=== PATIENT | male | born 1985 | race Two or more races ===

== ENCOUNTER 2017-12-29 22:12 | Emergency (ER) | payer MEDICAID ==
[~2017-12-29] VITALS: Ht 165.1 cm; Wt 86.2 kg
[2017-12-29 22:15] VITALS: BP 147/84
[2017-12-30] MEDS ORDERED: IBUPROFEN 200 MG TABLET PO ONE
[2017-12-30 00:31] LABS: CULTURE INDICATED? YES; MICROSCOPIC INDICATED
[2017-12-30] MEDS ORDERED: AZITHROMYCIN 500 MG TABLET PO ONE (01:00)
[2017-12-30] MEDS ORDERED: CEFTRIAXONE 250 MG IM ONE (01:00)
[2017-12-30] MEDS ORDERED: CEFTRIAXONE 250 MG ONE (01:14)
[2017-12-30] MEDS ORDERED: IBUPROFEN 200 MG TABLET ONE (01:14)
[2017-12-30] MEDS ORDERED: AZITHROMYCIN 250 MG TABLET ONE (01:14)
== END 2017-12-30 01:34 | disposition home or self-care (01) ==
LOC: ED 12-30 01:28
DX: N30.01 Acute cystitis with hematuria (principal); N45.1 Epididymitis; N43.3 Hydrocele, unspecified; F17.200 Nicotine dependence, unspecified, uncomplicated
CPT/HCPCS: 76870; 81001; 87086; 87491; 87591; 96372; 99285; J0696

== ENCOUNTER 2018-06-21 15:39 | Inpatient (IN) | payer MEDICAID ==
[~2018-06-21] VITALS: Ht 165.1 cm; Wt 76.1 kg
[2018-06-21 17:09] LABS: BASOPHILS # (AUTO) 0.08 x10^3/uL (0-0.1); BASOPHILS % (AUTO) 1 % (0-1); EOSINOPHILS # (AUTO) 0.46 x10^3/uL (0-0.4); EOSINOPHILS % (AUTO) 4 % (1-7); LYMPHOCYTES # (AUTO) 2.47 x10^3/uL (1-3.4); LYMPHOCYTES % (AUTO) 23 % (22-44); MD NO; MEAN CORPUSCULAR HEMOGLOBIN 29.7 pg (27.5-34.5); MEAN CORPUSCULAR HGB CONC 33.5 g/dL (33.2-36.2); MEAN CORPUSCULAR VOLUME 88.8 fL (81-97); MEAN PLATELET VOLUME 7.2 fL (7.4-10.4); MONOCYTES # (AUTO) 0.88 x10^3/uL (0.2-0.8); MONOCYTES % (AUTO) 8 % (2-9); NEUTROPHILS % (AUTO) 65 % (42-75); PLATELET COUNT 297 x10^3/uL (130-400); RED BLOOD COUNT 5.53 x10^6/uL (4.38-5.82); RED CELL DISTRIBUTION WIDTH 14.2 % (9.4-14.8)
[2018-06-21 17:11] LABS: ALANINE AMINOTRANSFERASE 49 U/L (12-78); ALBUMIN 2.6 g/dL (3.4-5.0); ANION GAP 9 mmol/L (5-15); CALCIUM 7.4 mg/dL (8.5-10.1); CHLORIDE 108 mmol/L (98-107); CREATININE 1.45 mg/dL (0.7-1.3)
[2018-06-21 17:15] LABS: ALKALINE PHOSPHATASE 77 U/L (45-117); BILIRUBIN,TOTAL 0.4 mg/dL (0.2-1.0); TOTAL PROTEIN 6.3 g/dL (6.4-8.2); TROPONIN I 0.063 ng/mL (0.000-0.045)
[2018-06-21] MEDS ORDERED: SODIUM CHLORIDE 0.9% 1,000ML IVBOLUS ONE (18:00)
[2018-06-21] MEDS ORDERED: OMNIPAQUE 350 MG/ML, 100ML BOTTLE ONE (18:25)
[2018-06-21] MEDS ORDERED: ASPIRIN 81 MG TABLET CHEW ONE (18:34)
[2018-06-21] MEDS ORDERED: METOPROLOL TARTRATE 50 MG TABLET ONE (18:34)
[2018-06-21] MEDS ORDERED: METOPROLOL TARTRATE 50 MG TABLET PO ONE (19:00)
[2018-06-21] MEDS ORDERED: ASPIRIN 81 MG TABLET CHEW PO ONE (19:00)
[2018-06-21] MEDS ORDERED: SODIUM CHLORIDE 0.9% 1,000 ML IV SCH (19:29)
[2018-06-21] MEDS ORDERED: DOCUSATE 100 MG CAPSULE PO PRN (19:30)
[2018-06-21] MEDS ORDERED: POLYETHYLENE GLYCOL 17 GM PACKET PO PRN (19:30)
[2018-06-21] MEDS ORDERED: GUAIFENESIN/DM 200-20MG, 10ML UDC PO PRN (19:30)
[2018-06-21] MEDS ORDERED: IBUPROFEN 600 MG TABLET PO PRN (19:30)
[2018-06-21 20:49] VITALS: BP 154/131
[2018-06-21] MEDS: NICOTINE 7 MG/24 HR PATCH.TD24 TD SCH (20:51)
[2018-06-21] MEDS: ENOXAPARIN 40 MG/0.4 ML SQ SCH (20:51)
[2018-06-21] MEDS: FAMOTIDINE 20 MG TABLET PO SCH (20:52)
[2018-06-21] MEDS: CARVEDILOL 6.25 MG TABLET PO SCH (20:52)
[2018-06-21 22:06] VITALS: BP 141/105
[2018-06-21 22:30] VITALS: BP 135/99
[2018-06-21] MEDS ORDERED: LABETALOL 5MG/ML, 20ML IVPush PRN (23:00)
[2018-06-21] MEDS ORDERED: ENALAPRILAT 1.25 MG/ML, 2ML IV PRN (23:00)
[2018-06-21] MEDS ORDERED: hydrALAzine 20 MG/ML, 1ML IV PRN (23:00)
[2018-06-21] MEDS: ONDANSETRON 2MG/ML, 2ML IVPush PRN (23:24)
[2018-06-22 01:58] VITALS: BP 120/90
[2018-06-22 05:14] LABS: ANION GAP 10 mmol/L (5-15); CALCIUM 7.1 mg/dL (8.5-10.1); CHLORIDE 113 mmol/L (98-107)
[2018-06-22 05:22] LABS: CHOL/HDL RATIO 3.5; CHOLESTEROL, TOTAL 145 mg/dL (140-239); CREATININE 1.45 mg/dL (0.7-1.3); HDL CHOL % 28 % (26-37); HDL CHOLESTEROL (DIRECT) 41 mg/dL (40-60); LDL CHOLESTEROL,CALCULATED 80 mg/dL (54-169); TRIGLYCERIDES 119 mg/dL (50-200); TROPONIN I 0.063 ng/mL (0.000-0.045); VLDL CHOLESTEROL 24 mg/dL (0-25)
[2018-06-22 07:25] VITALS: BP 126/95
[2018-06-22] MEDS: FAMOTIDINE 20 MG TABLET PO SCH ×2 (07:29→21:51)
[2018-06-22] MEDS: ONDANSETRON 2MG/ML, 2ML IVPush PRN (07:29)
[2018-06-22] MEDS: ASPIRIN 81 MG TABLET EC PO SCH (08:36)
[2018-06-22] MEDS: CARVEDILOL 6.25 MG TABLET PO SCH ×2 (08:36→21:51)
[2018-06-22] MEDS ORDERED: REGADENOSON 0.4 MG/5 ML SYRINGE ONE (09:41)
[2018-06-22] MEDS: LISINOPRIL 5 MG TABLET PO SCH (12:46)
[2018-06-22 12:47] VITALS: BP 129/95
[2018-06-22] MEDS: ENOXAPARIN 40 MG/0.4 ML SQ SCH (19:30)
[2018-06-22] MEDS: NICOTINE 7 MG/24 HR PATCH.TD24 TD SCH (19:30)
[2018-06-22 20:00] VITALS: BP 115/87
[2018-06-22] MEDS ORDERED: ATORVASTATIN 20 MG TABLET PO SCH (21:00)
[2018-06-22 21:46] VITALS: BP 126/92
[2018-06-23 02:00] VITALS: BP 112/83
[2018-06-23 06:57] VITALS: BP 118/88
[2018-06-23] MEDS: ASPIRIN 81 MG TABLET EC PO SCH (09:48)
[2018-06-23] MEDS: CARVEDILOL 6.25 MG TABLET PO SCH (09:49)
[2018-06-23] MEDS: LISINOPRIL 5 MG TABLET PO SCH (09:49)
[2018-06-23] MEDS: FAMOTIDINE 20 MG TABLET PO SCH (09:49)
[2018-06-23] MEDS ORDERED: CARV6.2512 PO ×2 (11:15)
[2018-06-23] MEDS ORDERED: LISI5TAB7 PO (11:15)
[2018-06-23 12:28] VITALS: BP 134/96
[2018-06-23 12:41] LABS: CHLORIDE 108 mmol/L (98-107)
[2018-06-23 12:45] LABS: ANION GAP 9 mmol/L (5-15); CALCIUM 7.9 mg/dL (8.5-10.1); CREATININE 1.57 mg/dL (0.7-1.3)
== END 2018-06-23 14:00 | disposition home or self-care (01) | DRG 682 ==
LOC: ED 18:21 → EDIP 19:03 → SUATTDRO 19:27 → 5SO 19:59
PROVIDERS: ADMIT Family Medicine; ATTEND Family Medicine
DX: N17.0 Acute kidney failure with tubular necrosis (principal); I50.23 Acute on chronic systolic (congestive) heart failure; E44.0 Moderate protein-calorie malnutrition; I42.9 Cardiomyopathy, unspecified; I11.0 Hypertensive heart disease with heart failure; F17.200 Nicotine dependence, unspecified, uncomplicated; F15.10 Other stimulant abuse, uncomplicated; G89.29 Other chronic pain; Z88.5 Allergy status to narcotic agent
CPT/HCPCS: 36415; 71045; 71275; 78452; 80048; 80053; 80061; 83735; 84145; 84484; 85025; 85379; 93005; 93017; 93306; 96360; 99285; G0378; J2405; J2785; Q9967; A9502; C9898; J7030

== ENCOUNTER 2018-06-25 06:51 | Inpatient (IN) | payer MEDICAID ==
[~2018-06-25] VITALS: Ht 165.1 cm; Wt 69.9 kg
[~2018-06-25 06:51] MED LIST: CARV6.2512 PO; LISI5TAB7 PO
[2018-06-25] MEDS ORDERED: SODIUM CHLORIDE FLUSH 10ML SYR IVF ONE (07:00)
[2018-06-25 07:31] LABS: BASOPHILS # (AUTO) 0.08 x10^3/uL (0-0.1); BASOPHILS % (AUTO) 1 % (0-1); EOSINOPHILS # (AUTO) 0.56 x10^3/uL (0-0.4); EOSINOPHILS % (AUTO) 5 % (1-7); LYMPHOCYTES # (AUTO) 2.43 x10^3/uL (1-3.4); LYMPHOCYTES % (AUTO) 22 % (22-44); MD NO; MEAN CORPUSCULAR HEMOGLOBIN 29.9 pg (27.5-34.5); MEAN CORPUSCULAR HGB CONC 33.1 g/dL (33.2-36.2); MEAN CORPUSCULAR VOLUME 90.3 fL (81-97); MEAN PLATELET VOLUME 7.2 fL (7.4-10.4); MONOCYTES # (AUTO) 0.91 x10^3/uL (0.2-0.8); MONOCYTES % (AUTO) 8 % (2-9); NEUTROPHILS # (AUTO) 7.29 x10^3/uL (1.8-6.8); NEUTROPHILS % (AUTO) 65 % (42-75); PLATELET COUNT 316 x10^3/uL (130-400); RED BLOOD COUNT 5.41 x10^6/uL (4.38-5.82); RED CELL DISTRIBUTION WIDTH 14.3 % (9.4-14.8)
[2018-06-25 07:38] LABS: INTERNATIONAL NORMALIZED RATIO 1.16 (0.93-1.1)
[2018-06-25 07:40] LABS: ALANINE AMINOTRANSFERASE 830 U/L (12-78); ALBUMIN 2.8 g/dL (3.4-5.0); ANION GAP 6 mmol/L (5-15); CALCIUM 7.9 mg/dL (8.5-10.1); CHLORIDE 107 mmol/L (98-107)
[2018-06-25 07:45] LABS: ALKALINE PHOSPHATASE 86 U/L (45-117); BILIRUBIN,TOTAL 0.6 mg/dL (0.2-1.0); CREATININE 1.41 mg/dL (0.7-1.3); TOTAL PROTEIN 7.1 g/dL (6.4-8.2); TROPONIN I 0.044 ng/mL (0.000-0.045)
[2018-06-25] MEDS ORDERED: FUROSEMIDE 40 MG/4 ML ONE (08:15)
[2018-06-25] MEDS ORDERED: ONDANSETRON ODT 4 MG ONE (08:19)
[2018-06-25] MEDS ORDERED: FUROSEMIDE 40 MG/4 ML IV ONE (08:30)
[2018-06-25 08:44] LABS: AMPHETAMINE SCREEN, URINE Negative (Negative); BARBITURATE SCREEN, URINE Negative (Negative); BENZODIAZEPINE SCREEN, URINE Negative (Negative); CANNABINOID SCREEN, URINE Positive (Negative); COCAINE SCREEN, URINE Negative (Negative); METHADONE SCREEN, URINE Negative (Negative); OPIATE SCREEN, URINE Negative (Negative)
[2018-06-25] MEDS ORDERED: ONDANSETRON ODT 4 MG PO ONE (09:00)
[2018-06-25 09:46] VITALS: BP 163/122
[2018-06-25] MEDS ORDERED: ACETAMINOPHEN 650 MG/20.3 ML UDC PO PRN (11:30)
[2018-06-25] MEDS ORDERED: ZOLPIDEM 10MG TABLET PO PRN (11:30)
[2018-06-25] MEDS ORDERED: ONDANSETRON 2MG/ML, 2ML IV PRN (11:30)
[2018-06-25] MEDS: HEPARIN 5,000 UNITS/ML, 1ML SQ SCH ×2 (12:25→23:30)
[2018-06-25] MEDS: CARVEDILOL 3.125 MG TABLET PO SCH ×2 (12:25→17:45)
[2018-06-25 12:30] VITALS: BP_SYST 128; BP_SYST 155; BP_DIAS 118; BP_DIAS 78
[2018-06-25 12:38] VITALS: BP 161/110
[2018-06-25] MEDS: hydrALAzine 20 MG/ML, 1ML IV PRN (13:05)
[2018-06-25] MEDS ORDERED: NICOTINE 21 MG/24 HR PATCH.TD24 TD ONE (14:00)
[2018-06-25] MEDS: PIPERACILLIN/TAZO 2.25 GM in SODIUM CHLORIDE 0.9% 50 ML IV SCH ×2 (14:51→22:17)
[2018-06-25 16:20] VITALS: BP 165/105
[2018-06-25 19:55] VITALS: BP 139/95
[2018-06-25] MEDS: FUROSEMIDE 40 MG/4 ML IVPush SCH (20:54)
[2018-06-26 01:37] VITALS: BP 154/89
[2018-06-26 04:47] LABS: BASOPHILS # (AUTO) 0.07 x10^3/uL (0-0.1); BASOPHILS % (AUTO) 1 % (0-1); EOSINOPHILS # (AUTO) 0.84 x10^3/uL (0-0.4); EOSINOPHILS % (AUTO) 7 % (1-7); LYMPHOCYTES % (AUTO) 23 % (22-44); MD NO; MEAN CORPUSCULAR HEMOGLOBIN 30.2 pg (27.5-34.5); MEAN CORPUSCULAR HGB CONC 33.8 g/dL (33.2-36.2); MEAN CORPUSCULAR VOLUME 89.5 fL (81-97); MEAN PLATELET VOLUME 7.5 fL (7.4-10.4); MONOCYTES # (AUTO) 1.07 x10^3/uL (0.2-0.8); MONOCYTES % (AUTO) 9 % (2-9); NEUTROPHILS # (AUTO) 7.11 x10^3/uL (1.8-6.8); NEUTROPHILS % (AUTO) 60 % (42-75); PLATELET COUNT 308 x10^3/uL (130-400); RED BLOOD COUNT 5.09 x10^6/uL (4.38-5.82)
[2018-06-26 04:57] LABS: ALBUMIN 2.2 g/dL (3.4-5.0); ANION GAP 7 mmol/L (5-15); CALCIUM 8.3 mg/dL (8.5-10.1); CHLORIDE 104 mmol/L (98-107)
[2018-06-26 05:01] LABS: ALANINE AMINOTRANSFERASE 629 U/L (12-78); ALKALINE PHOSPHATASE 74 U/L (45-117); BILIRUBIN,TOTAL 0.5 mg/dL (0.2-1.0); CREATININE 1.47 mg/dL (0.7-1.3); TOTAL PROTEIN 5.8 g/dL (6.4-8.2)
[2018-06-26 05:46] VITALS: BP 163/127
[2018-06-26] MEDS: CARVEDILOL 3.125 MG TABLET PO SCH ×2 (05:47→17:16)
[2018-06-26] MEDS: PIPERACILLIN/TAZO/PMX 2.25GM 50 ML IV SCH ×3 (05:47→23:11)
[2018-06-26 07:20] VITALS: BP 136/99
[2018-06-26] MEDS: FUROSEMIDE 40 MG/4 ML IVPush SCH (08:34)
[2018-06-26] MEDS ORDERED: MORPHINE SULFATE 4 MG/ML, 1ML ONE (10:32)
[2018-06-26] MEDS: HEPARIN 5,000 UNITS/ML, 1ML SQ SCH ×2 (11:30→23:11)
[2018-06-26 13:38] VITALS: BP 153/116
[2018-06-26] MEDS: hydrALAzine 20 MG/ML, 1ML IV PRN (15:11)
[2018-06-26] MEDS: FUROSEMIDE 40 MG TABLET PO SCH (17:16)
[2018-06-26 18:50] VITALS: BP 145/95
[2018-06-26] MEDS: LISINOPRIL 5 MG TABLET PO SCH (19:53)
[2018-06-27 02:18] VITALS: BP 152/99
[2018-06-27] MEDS: CARVEDILOL 3.125 MG TABLET PO SCH (05:38)
[2018-06-27 05:42] LABS: BASOPHILS # (AUTO) 0.07 x10^3/uL (0-0.1); BASOPHILS % (AUTO) 1 % (0-1); EOSINOPHILS # (AUTO) 0.77 x10^3/uL (0-0.4); EOSINOPHILS % (AUTO) 8 % (1-7); LYMPHOCYTES # (AUTO) 2.66 x10^3/uL (1-3.4); LYMPHOCYTES % (AUTO) 26 % (22-44); MD NO; MEAN CORPUSCULAR HGB CONC 33.3 g/dL (33.2-36.2); MEAN PLATELET VOLUME 7.4 fL (7.4-10.4); MONOCYTES # (AUTO) 0.89 x10^3/uL (0.2-0.8); MONOCYTES % (AUTO) 9 % (2-9); NEUTROPHILS # (AUTO) 5.85 x10^3/uL (1.8-6.8); NEUTROPHILS % (AUTO) 57 % (42-75); PLATELET COUNT 301 x10^3/uL (130-400); RED BLOOD COUNT 5.48 x10^6/uL (4.38-5.82); RED CELL DISTRIBUTION WIDTH 14.3 % (9.4-14.8)
[2018-06-27 05:50] LABS: CHLORIDE 103 mmol/L (98-107)
[2018-06-27 05:55] LABS: ANION GAP 8 mmol/L (5-15); CALCIUM 8.1 mg/dL (8.5-10.1); CREATININE 1.62 mg/dL (0.7-1.3)
[2018-06-27 06:56] VITALS: BP 152/99
[2018-06-27] MEDS: FUROSEMIDE 40 MG TABLET PO SCH (07:29)
[2018-06-27] MEDS: PIPERACILLIN/TAZO/PMX 2.25GM 50 ML IV SCH (07:29)
[2018-06-27] MEDS: LISINOPRIL 5 MG TABLET PO SCH (09:35)
[2018-06-27] MEDS ORDERED: CARV6.2512 PO (09:42)
[2018-06-27] MEDS ORDERED: AMOX1TAB64 PO (09:42)
[2018-06-27] MEDS ORDERED: FURO40TA6 PO (09:42)
[2018-06-27] MEDS ORDERED: LISI5TAB7 PO (09:42)
[2018-06-27] MEDS: HEPARIN 5,000 UNITS/ML, 1ML SQ SCH (11:00)
== END 2018-06-27 11:40 | disposition home or self-care (01) | DRG 291 ==
LOC: ED 08:25 → EDIP 08:26 → ED 08:37 → 4WST 09:34 → DCLOUNGE 06-27 11:20
PROVIDERS: ADMIT Internal Medicine; ATTEND Internal Medicine
DX: I13.0 Hypertensive heart and chronic kidney disease with heart failure and stage 1 through stage 4 chronic kidney disease, or unspecified chronic kidney disease (principal); I50.23 Acute on chronic systolic (congestive) heart failure; I16.9 Hypertensive crisis, unspecified; K81.0 Acute cholecystitis; T43.625A Adverse effect of amphetamines, initial encounter; I42.7 Cardiomyopathy due to drug and external agent; E87.5 Hyperkalemia; F17.210 Nicotine dependence, cigarettes, uncomplicated; K76.1 Chronic passive congestion of liver; N18.3 Chronic kidney disease, stage 3 (moderate); Z91.14 Patient's other noncompliance with medication regimen; Y92.89 Other specified places as the place of occurrence of the external cause; Z88.8 Allergy status to other drugs, medicaments and biological substances; Z88.5 Allergy status to narcotic agent
CPT/HCPCS: 36415; 71045; 76700; 78226; 80048; 80053; 80307; 83880; 84484; 85025; 85610; 93005; 96374; G0378; J1644; J1940; J2543; A9537; C9898; J0360

== ENCOUNTER 2018-09-01 23:29 | Emergency (ER) | payer MEDICAID ==
[~2018-09-01] VITALS: Ht 165.1 cm; Wt 71.4 kg
[~2018-09-01 23:29] MED LIST changes: +AMOX1TAB64 PO; +FURO40TA6 PO
[2018-09-01 23:36] VITALS: BP 128/91
[2018-09-02] MEDS ORDERED: ALBUTEROL/IPRATROPIUM 2.5MG/0.5MG, 3 ML NPPB ONE
[2018-09-02] MEDS ORDERED: ALBUTEROL/IPRATROPIUM 2.5MG/0.5MG, 3 ML ONE
== END 2018-09-02 01:11 | disposition home or self-care (01) ==
LOC: ED 09-02 00:02
DX: J20.9 Acute bronchitis, unspecified (principal); I11.0 Hypertensive heart disease with heart failure; I50.9 Heart failure, unspecified; I42.9 Cardiomyopathy, unspecified; F17.200 Nicotine dependence, unspecified, uncomplicated
CPT/HCPCS: 71046; 93005; 94640; 99283; 99406; J7620

== ENCOUNTER 2018-09-28 14:44 | Inpatient (IN) | payer MEDICAID ==
[~2018-09-28] VITALS: Ht 165.1 cm; Wt 73.2 kg
--- NOTE | 2018-09-28 15:05 | NUR ---
assumed care of pt. pt here c/o N/V and cough with sinus and chest congestion x2 days. deniesdiarrhea. pt has a hx of CHF but denies CP. pt is clammy and mildly diaphoretic. is slightlys SOB but speaking full sentences wihout difficulty. pt has not had a flu vaccine and denies recent sick contacts. no family at bedside
--- NOTE | 2018-09-28 15:15 | NUR ---
pt to RAD
[2018-09-28 15:30] LABS: BASOPHILS # (AUTO) 0.09 x10^3/uL (0-0.1); BASOPHILS % (AUTO) 1 % (0-1); EOSINOPHILS # (AUTO) 0.06 x10^3/uL (0-0.4); EOSINOPHILS % (AUTO) 0 % (1-7); LYMPHOCYTES # (AUTO) 3.29 x10^3/uL (1-3.4); LYMPHOCYTES % (AUTO) 22 % (22-44); MD NO; MEAN CORPUSCULAR HGB CONC 33.2 g/dL (33.2-36.2); MEAN CORPUSCULAR VOLUME 90.1 fL (81-97); MEAN PLATELET VOLUME 7.7 fL (7.4-10.4); MONOCYTES # (AUTO) 0.98 x10^3/uL (0.2-0.8); MONOCYTES % (AUTO) 7 % (2-9); NEUTROPHILS # (AUTO) 10.62 x10^3/uL (1.8-6.8); NEUTROPHILS % (AUTO) 71 % (42-75); PLATELET COUNT 293 x10^3/uL (130-400); RED BLOOD COUNT 6.05 x10^6/uL (4.38-5.82)
[2018-09-28 15:39] LABS: ALANINE AMINOTRANSFERASE 256 U/L (12-78); ALBUMIN 3.2 g/dL (3.4-5.0); ANION GAP 9 mmol/L (5-15); CALCIUM 8.8 mg/dL (8.5-10.1); CHLORIDE 103 mmol/L (98-107); CREATININE 1.66 mg/dL (0.7-1.3)
[2018-09-28 15:43] LABS: ALKALINE PHOSPHATASE 92 U/L (45-117); BILIRUBIN,TOTAL 1.6 mg/dL (0.2-1.0); TOTAL PROTEIN 8.6 g/dL (6.4-8.2)
[2018-09-28] MEDS ORDERED: ASPIRIN 81 MG TABLET CHEW ONE (15:51)
--- NOTE | 2018-09-28 15:55 | NUR ---
pt medicated per order. pt denies CP at this time
--- NOTE | 2018-09-28 15:56 | NUR ---
pt is hypertensive. states that he has been complaint with meds at home. denies [place] dizziness or loss or change of vision. REESE. no other c/o. pt was initially sleeping when this RN entered room to adminster medication
[2018-09-28] MEDS ORDERED: ASPIRIN 81 MG TABLET CHEW PO ONE (16:00)
[2018-09-28] MEDS ORDERED: NITROGLYCERIN SINGLE TAB 0.4 MG SL PRN (16:00)
--- NOTE | 2018-09-28 16:05 | NUR ---
code cardiac called, code cart to bedside
--- NOTE | 2018-09-28 16:15 | NUR ---
hospitalist at bedside. pt now admits to frequent meth use and SOB with intermittent CP. pt also now states that he had a hx of ear surgery
--- NOTE | 2018-09-28 16:16 | NUR ---
CARDIOLOGY PAGED @ [phone]. SECOND PAGE ATTEMPTED. DR. EVANS RETURNED CALL @ 1605 WHILE ON HOLD. CODE CARDIAC PAGED @ 1607. SPARK PLUG ASSEMBLER CALLED @ 1609, NO ANSWER. PHLEBOTOMY SERVICES TECHNICIAN CALLED SPARK PLUG ASSEMBLER AND LET US KNOW THEY HAD BEEN PAGED @ 1612.
[2018-09-28] MEDS ORDERED: SODIUM CHLORIDE FLUSH 10ML SYR IVF PRN (16:30)
--- NOTE | 2018-09-28 16:31 | NUR ---
WORKERS COMPENSATION CONSULTANT ARRIVED @ [id number]
--- NOTE | 2018-09-28 16:32 | NUR ---
Dr Looney at bedside for eval. pt to go to garage laborer
--- NOTE | 2018-09-28 16:37 | NUR ---
consent for laboratory sample carrier has been signed, procedural sedation packet initiated
--- NOTE | 2018-09-28 16:45 | NUR ---
TOUR BUS DRIVER/GUIDE CALLED. THEY ARE READY FOR PT.
[2018-09-28] MEDS ORDERED: MIDAZOLAM 1 MG/ML, 5ML ONE (16:46)
[2018-09-28] MEDS ORDERED: VERAPAMIL 2.5 MG/ML, 2ML ONE (16:46)
[2018-09-28] MEDS ORDERED: LIDOCAINE 2%, 20ML ONE (16:46)
[2018-09-28] MEDS ORDERED: BIVALIRUDIN 250 MG ONE (16:46)
[2018-09-28] MEDS ORDERED: TICAGRELOR 90 MG TABLET ONE (16:46)
[2018-09-28] MEDS ORDERED: FENTANYL PF 100 MCG/2ML ONE (16:46)
[2018-09-28] MEDS ORDERED: HEPARIN 1,000 UNITS/ML, 10ML ONE (16:46)
--- NOTE | 2018-09-28 16:46 | NUR ---
pt to cardiac cath lab radiology technologist
[2018-09-28] MEDS ORDERED: NITROGLYCERIN 0.4 MG BOTTLE (25 TABS) SL PRN (17:00)
[2018-09-28] MEDS ORDERED: HYDROmorphone 2 MG/ML, 1ML IVPush PRN (17:00)
[2018-09-28] MEDS ORDERED: NITROGLYCERIN 0.4 MG/SPRAY SL PRN (17:00)
[2018-09-28] MEDS ORDERED: METOPROLOL 1 MG/ML, 5ML ONE (17:09)
[2018-09-28] MEDS ORDERED: ENOXAPARIN 40 MG/0.4 ML SQ SCH (17:30)
[2018-09-28] MEDS ORDERED: ONDANSETRON 2MG/ML, 2ML ONE (17:32)
[2018-09-28] MEDS ORDERED: SODIUM CHLORIDE 0.9% 1,000 ML IV SCH (17:34)
[2018-09-28] MEDS ORDERED: ONDANSETRON 2MG/ML, 2ML IVPush PRN (18:00)
[2018-09-28] MEDS ORDERED: FUROSEMIDE 40 MG/4 ML IV ONE (18:00)
[2018-09-28] MEDS ORDERED: ATORVASTATIN 80 MG TABLET PO ONE (18:00)
[2018-09-28 19:00] VITALS: BP 106/82
[2018-09-28] MEDS: CARVEDILOL 12.5 MG TABLET PO SCH (20:00)
[2018-09-28 20:29] VITALS: BP 97/46
[2018-09-28] MEDS ORDERED: ATORVASTATIN 80 MG TABLET PO SCH (21:00)
[2018-09-28] MEDS: TICAGRELOR 90 MG TABLET PO SCH (21:18)
[2018-09-29 04:00] VITALS: BP 140/100
[2018-09-29 04:49] LABS: ANION GAP 8 mmol/L (5-15); CALCIUM 7.9 mg/dL (8.5-10.1); CHLORIDE 104 mmol/L (98-107)
[2018-09-29 04:50] LABS: CREATININE 1.52 mg/dL (0.7-1.3)
[2018-09-29] MEDS: CARVEDILOL 12.5 MG TABLET PO SCH ×2 (05:03→16:37)
[2018-09-29 06:04] LABS: CHOLESTEROL, TOTAL 133 mg/dL (140-239); TRIGLYCERIDES 63 mg/dL (50-200); VLDL CHOLESTEROL 13 mg/dL (0-25)
[2018-09-29 06:06] LABS: CHOL/HDL RATIO 4.4; HDL CHOL % 23 % (26-37); HDL CHOLESTEROL (DIRECT) 30 mg/dL (40-60); LDL CHOLESTEROL,CALCULATED 90 mg/dL (54-169)
[2018-09-29 06:52] LABS: AMPHETAMINE SCREEN, URINE Positive (Negative); BARBITURATE SCREEN, URINE Negative (Negative); BENZODIAZEPINE SCREEN, URINE Positive (Negative); CANNABINOID SCREEN, URINE Positive (Negative); COCAINE SCREEN, URINE Negative (Negative); METHADONE SCREEN, URINE Negative (Negative); OPIATE SCREEN, URINE Negative (Negative)
[2018-09-29] MEDS: SPIRONOLACTONE 25 MG TABLET PO SCH (08:20)
[2018-09-29] MEDS: ASPIRIN 81 MG TABLET EC PO SCH (08:21)
[2018-09-29] MEDS: TICAGRELOR 90 MG TABLET PO SCH ×2 (08:21→20:12)
[2018-09-29] MEDS: FUROSEMIDE 40 MG TABLET PO SCH (08:21)
[2018-09-29] MEDS: POTASSIUM CHLORIDE 20 MEQ TAB.ER.PRT PO SCH (08:21)
[2018-09-29] MEDS ORDERED: LISINOPRIL 20 MG TABLET PO SCH (09:00)
[2018-09-29] MEDS ORDERED: WARFARIN MODERAT DOSE PROTOCOL XX PRN (11:00)
[2018-09-29 11:10] LABS: INTERNATIONAL NORMALIZED RATIO 1.67 (0.93-1.1); PROTHROMBIN TIME 17.4 Seconds (9.6-11.5)
[2018-09-29] MEDS: WARFARIN HIGH DOSE PROTOCOL XX SCH (12:00)
[2018-09-29] MEDS ORDERED: ENOXAPARIN 80 MG/0.8 ML SQ SCH (12:30)
[2018-09-29] MEDS: ENOXAPARIN 80 MG/0.8 ML SQ SCH (13:59)
[2018-09-29] MEDS ORDERED: WARFARIN 5 MG TABLET PO-COUM ONE (16:33)
[2018-09-29 16:36] VITALS: BP 109/77
[2018-09-29] MEDS ORDERED: WARFARIN 10 MG TABLET PO-COUM ONE (18:00)
[2018-09-29 18:35] VITALS: BP 128/88
[2018-09-30] MEDS: ENOXAPARIN 80 MG/0.8 ML SQ SCH (00:42)
[2018-09-30 03:55] VITALS: BP 125/85
[2018-09-30 05:25] LABS: BASOPHILS # (AUTO) 0.09 x10^3/uL (0-0.1); BASOPHILS % (AUTO) 1 % (0-1); EOSINOPHILS # (AUTO) 0.43 x10^3/uL (0-0.4); EOSINOPHILS % (AUTO) 3 % (1-7); LYMPHOCYTES # (AUTO) 3.14 x10^3/uL (1-3.4); LYMPHOCYTES % (AUTO) 23 % (22-44); MD NO; MEAN CORPUSCULAR HEMOGLOBIN 30.1 pg (27.5-34.5); MEAN CORPUSCULAR HGB CONC 33.2 g/dL (33.2-36.2); MEAN CORPUSCULAR VOLUME 90.8 fL (81-97); MEAN PLATELET VOLUME 7.7 fL (7.4-10.4); MONOCYTES # (AUTO) 0.82 x10^3/uL (0.2-0.8); MONOCYTES % (AUTO) 6 % (2-9); NEUTROPHILS # (AUTO) 9.03 x10^3/uL (1.8-6.8); NEUTROPHILS % (AUTO) 67 % (42-75); PLATELET COUNT 295 x10^3/uL (130-400); RED BLOOD COUNT 5.35 x10^6/uL (4.38-5.82); RED CELL DISTRIBUTION WIDTH 13.9 % (9.4-14.8)
[2018-09-30 05:32] LABS: INTERNATIONAL NORMALIZED RATIO 2.12 (0.93-1.1); PROTHROMBIN TIME 21.8 Seconds (9.6-11.5)
[2018-09-30 05:39] VITALS: BP 130/88
[2018-09-30 05:40] LABS: ALANINE AMINOTRANSFERASE 532 U/L (12-78); ALBUMIN 2.2 g/dL (3.4-5.0); ANION GAP 7 mmol/L (5-15); CALCIUM 8.2 mg/dL (8.5-10.1); CHLORIDE 104 mmol/L (98-107); CREATININE 1.37 mg/dL (0.7-1.3)
[2018-09-30 05:42] LABS: ALKALINE PHOSPHATASE 83 U/L (45-117); BILIRUBIN,TOTAL 0.7 mg/dL (0.2-1.0)
[2018-09-30] MEDS: CARVEDILOL 12.5 MG TABLET PO SCH (05:47)
[2018-09-30 07:54] VITALS: BP 121/88
[2018-09-30] MEDS: TICAGRELOR 90 MG TABLET PO SCH ×2 (10:13→20:52)
[2018-09-30] MEDS: SPIRONOLACTONE 25 MG TABLET PO SCH (10:13)
[2018-09-30] MEDS: POTASSIUM CHLORIDE 20 MEQ TAB.ER.PRT PO SCH (10:13)
[2018-09-30] MEDS: FUROSEMIDE 40 MG TABLET PO SCH (10:13)
[2018-09-30] MEDS: ASPIRIN 81 MG TABLET EC PO SCH (10:13)
[2018-09-30] MEDS: WARFARIN HIGH DOSE PROTOCOL XX SCH (10:14)
[2018-09-30] MEDS ORDERED: MAGNESIUM SULFATE PMX 2GM/50ML 50 ML IV ONE (10:30)
[2018-09-30 12:29] VITALS: BP 132/92
[2018-09-30] MEDS: LOSARTAN 25MG TABLET PO SCH (12:30)
[2018-09-30 12:52] VITALS: BP 137/99
[2018-09-30] MEDS: CARVEDILOL 6.25 MG TABLET PO SCH (17:28)
[2018-09-30] MEDS ORDERED: WARFARIN 2.5 MG TABLET PO-COUM ONE (18:00)
[2018-09-30 20:02] VITALS: BP 135/88
[2018-09-30] MEDS: MAGNESIUM OXIDE 400 MG TABLET PO SCH (20:52)
[2018-10-01 00:14] VITALS: BP 124/84
[2018-10-01 05:07] LABS: BASOPHILS # (AUTO) 0.05 x10^3/uL (0-0.1); BASOPHILS % (AUTO) 0 % (0-1); EOSINOPHILS # (AUTO) 0.48 x10^3/uL (0-0.4); EOSINOPHILS % (AUTO) 4 % (1-7); LYMPHOCYTES # (AUTO) 2.42 x10^3/uL (1-3.4); LYMPHOCYTES % (AUTO) 20 % (22-44); MD NO; MEAN CORPUSCULAR HEMOGLOBIN 30.3 pg (27.5-34.5); MEAN CORPUSCULAR HGB CONC 33.6 g/dL (33.2-36.2); MEAN CORPUSCULAR VOLUME 90.3 fL (81-97); MEAN PLATELET VOLUME 8.1 fL (7.4-10.4); MONOCYTES # (AUTO) 1.05 x10^3/uL (0.2-0.8); MONOCYTES % (AUTO) 9 % (2-9); NEUTROPHILS # (AUTO) 8.36 x10^3/uL (1.8-6.8); NEUTROPHILS % (AUTO) 68 % (42-75); PLATELET COUNT 300 x10^3/uL (130-400); RED BLOOD COUNT 5.63 x10^6/uL (4.38-5.82); RED CELL DISTRIBUTION WIDTH 13.5 % (9.4-14.8)
[2018-10-01 05:20] LABS: ALBUMIN 2.5 g/dL (3.4-5.0); ANION GAP 6 mmol/L (5-15); CHLORIDE 104 mmol/L (98-107)
[2018-10-01 05:23] LABS: ALANINE AMINOTRANSFERASE 463 U/L (12-78); ALKALINE PHOSPHATASE 85 U/L (45-117); BILIRUBIN,TOTAL 0.6 mg/dL (0.2-1.0); CREATININE 1.36 mg/dL (0.7-1.3); TOTAL PROTEIN 6.9 g/dL (6.4-8.2)
[2018-10-01 05:24] LABS: INTERNATIONAL NORMALIZED RATIO 6.12 (0.93-1.1); PROTHROMBIN TIME 60.5 Seconds (9.6-11.5)
[2018-10-01 05:49] VITALS: BP 124/72
[2018-10-01] MEDS: CARVEDILOL 6.25 MG TABLET PO SCH ×2 (05:50→15:34)
[2018-10-01] MEDS ORDERED: HOLD COUMADIN MC PRN (08:00)
[2018-10-01] MEDS: POTASSIUM CHLORIDE 20 MEQ TAB.ER.PRT PO SCH (08:18)
[2018-10-01] MEDS: FUROSEMIDE 40 MG TABLET PO SCH (08:18)
[2018-10-01] MEDS: MAGNESIUM OXIDE 400 MG TABLET PO SCH ×2 (08:18→20:03)
[2018-10-01] MEDS: ASPIRIN 81 MG TABLET EC PO SCH (08:18)
[2018-10-01] MEDS: TICAGRELOR 90 MG TABLET PO SCH ×2 (08:18→20:03)
[2018-10-01] MEDS: LOSARTAN 25MG TABLET PO SCH (08:18)
[2018-10-01] MEDS: SPIRONOLACTONE 25 MG TABLET PO SCH (08:18)
[2018-10-01 09:58] VITALS: BP 135/96
[2018-10-01 13:04] VITALS: BP 142/107
[2018-10-01 20:51] VITALS: BP 147/95
[2018-10-02] VITALS (7 sets, daily range): BP systolic 89–166; BP diastolic 50–127
[2018-10-02] MEDS: CARVEDILOL 6.25 MG TABLET PO SCH (05:34)
[2018-10-02 05:48] LABS: INTERNATIONAL NORMALIZED RATIO 5.18 (0.93-1.1); PROTHROMBIN TIME 51.5 Seconds (9.6-11.5)
[2018-10-02] MEDS ORDERED: CARVEDILOL 6.25 MG TABLET PO ONE ×2 (07:00→11:00)
[2018-10-02] MEDS ORDERED: hydrALAzine 20 MG/ML, 1ML IV PRN (07:00)
[2018-10-02] MEDS ORDERED: HOLD COUMADIN MC PRN (07:30)
[2018-10-02] MEDS: POTASSIUM CHLORIDE 20 MEQ TAB.ER.PRT PO SCH (07:52)
[2018-10-02] MEDS: MAGNESIUM OXIDE 400 MG TABLET PO SCH ×2 (07:52→20:57)
[2018-10-02] MEDS: SPIRONOLACTONE 25 MG TABLET PO SCH (07:52)
[2018-10-02] MEDS: ASPIRIN 81 MG TABLET EC PO SCH (07:52)
[2018-10-02] MEDS: TICAGRELOR 90 MG TABLET PO SCH ×2 (07:52→20:57)
[2018-10-02] MEDS: FUROSEMIDE 40 MG TABLET PO SCH (07:53)
[2018-10-02] MEDS ORDERED: ENALAPRILAT 1.25 MG/ML, 2ML IV PRN (08:30)
[2018-10-02] MEDS ORDERED: LOSARTAN 50MG TABLET PO SCH (09:00)
[2018-10-02] MEDS: LOSARTAN 50MG TABLET PO SCH ×2 (09:00→20:56)
[2018-10-02] MEDS ORDERED: TICA90TA PO (10:38)
[2018-10-02] MEDS ORDERED: MAGN400T50 PO (10:38)
[2018-10-02] MEDS ORDERED: LOSA50TA2 PO (10:38)
[2018-10-02] MEDS ORDERED: POTA20TA6 PO (10:38)
[2018-10-02] MEDS ORDERED: WARF2TAB PO ×2 (10:38)
[2018-10-02] MEDS ORDERED: CARV12.543 PO ×2 (10:38)
[2018-10-02] MEDS ORDERED: SPIR25TA PO (10:38)
[2018-10-02] MEDS ORDERED: ASPI81TA45 PO (10:38)
[2018-10-02] MEDS ORDERED: ATOR40TA78 PO (10:42)
[2018-10-02 12:35] LABS: AMPHETAMINE SCREEN, URINE Negative (Negative); BARBITURATE SCREEN, URINE Negative (Negative); BENZODIAZEPINE SCREEN, URINE Negative (Negative); CANNABINOID SCREEN, URINE Negative (Negative); COCAINE SCREEN, URINE Negative (Negative); METHADONE SCREEN, URINE Negative (Negative); OPIATE SCREEN, URINE Negative (Negative)
[2018-10-02] MEDS ORDERED: SODIUM CHLORIDE 0.9% 250 ML IV SCH (16:30)
[2018-10-02] MEDS: CARVEDILOL 12.5 MG TABLET PO SCH (17:18)
[2018-10-02] MEDS: DIGOXIN 0.125 MG TABLET PO SCH (17:24)
[2018-10-02] MEDS ORDERED: CARVEDILOL 12.5 MG TABLET PO SCH ×2 (18:00)
[2018-10-03 01:44] VITALS: BP 108/74
[2018-10-03] MEDS: CARVEDILOL 12.5 MG TABLET PO SCH (05:58)
[2018-10-03 07:25] VITALS: BP 109/74
[2018-10-03 08:40] LABS: INTERNATIONAL NORMALIZED RATIO 3.24 (0.93-1.1); PROTHROMBIN TIME 32.8 Seconds (9.6-11.5)
[2018-10-03] MEDS ORDERED: CARV12.543 PO (09:27)
[2018-10-03 09:31] VITALS: BP 123/84
[2018-10-03] MEDS: TICAGRELOR 90 MG TABLET PO SCH (09:34)
[2018-10-03] MEDS: DIGOXIN 0.125 MG TABLET PO SCH (09:34)
[2018-10-03] MEDS: MAGNESIUM OXIDE 400 MG TABLET PO SCH (09:34)
[2018-10-03] MEDS: ASPIRIN 81 MG TABLET EC PO SCH (09:34)
[2018-10-03] MEDS: LOSARTAN 50MG TABLET PO SCH (09:35)
[2018-10-03] MEDS: POTASSIUM CHLORIDE 20 MEQ TAB.ER.PRT PO SCH (09:35)
[2018-10-03] MEDS: FUROSEMIDE 40 MG TABLET PO SCH (09:35)
[2018-10-03] MEDS: SPIRONOLACTONE 25 MG TABLET PO SCH (09:35)
[2018-10-03 13:04] VITALS: BP 133/92
[2018-10-03] MEDS ORDERED: WARF2TAB PO (16:26)
== END 2018-10-03 18:28 | disposition home or self-care (01) | DRG 248 ==
LOC: ED 15:15 → SUATTDRO 16:42 → EDIP 17:25 → CCU 17:40 → 5SO 09-29 14:17
PROVIDERS: ADMIT Internal Medicine; ATTEND Internal Medicine
PROC: 4A023N7 Measurement of Cardiac Sampling and Pressure, Left Heart, Percutaneous Approach (ICD-10-PCS; principal; 2018-09-28)
PROC: 02703EZ Dilation of Coronary Artery, One Artery with Two Intraluminal Devices, Percutaneous Approach (ICD-10-PCS; 2018-09-28)
PROC: B2111ZZ Fluoroscopy of Multiple Coronary Arteries using Low Osmolar Contrast (ICD-10-PCS; 2018-09-28)
PROC: B2151ZZ Fluoroscopy of Left Heart using Low Osmolar Contrast (ICD-10-PCS; 2018-09-28)
DX: I21.02 ST elevation (STEMI) myocardial infarction involving left anterior descending coronary artery (principal); I50.43 Acute on chronic combined systolic (congestive) and diastolic (congestive) heart failure; N17.0 Acute kidney failure with tubular necrosis; D68.69 Other thrombophilia; E78.5 Hyperlipidemia, unspecified; F15.10 Other stimulant abuse, uncomplicated; I11.0 Hypertensive heart disease with heart failure; I16.0 Hypertensive urgency; I25.10 Atherosclerotic heart disease of native coronary artery without angina pectoris; I25.5 Ischemic cardiomyopathy; K72.90 Hepatic failure, unspecified without coma; K75.89 Other specified inflammatory liver diseases; Z79.82 Long term (current) use of aspirin; I25.2 Old myocardial infarction; Z72.0 Tobacco use; Z79.01 Long term (current) use of anticoagulants; Z95.5 Presence of coronary angioplasty implant and graft
CPT/HCPCS: 36415; 71046; 80048; 80053; 80061; 80307; 83735; 83880; 84100; 84484; 85014; 85018; 85025; 85610; 86706; 86803; 87081; 87340; 87806; 93005; 93306; 93458; 99285; C1769; C1876; C1894; G0378; J0583; J1644; J1650; J1940; J2250; J2405; J3010; J3490; C1725; C1887; G0475; J3475; J7050; Q9967

== ENCOUNTER 2018-10-27 13:05 | Emergency (ER) | payer MEDICAID ==
[~2018-10-27] VITALS: Ht 162.6 cm; Wt 71.0 kg
[~2018-10-27 13:05] MED LIST changes: +ASPI81TA45 PO; +ATOR40TA78 PO; +CARV12.543 PO; +LOSA50TA2 PO; +MAGN400T50 PO; +POTA20TA6 PO; +SPIR25TA PO; +TICA90TA PO; +WARF2TAB PO
--- NOTE | 2018-10-27 13:43 | NUR ---
PT PLACED ON HEART MONITOR, BP CUFF, PULSE OX. PT UPDATED ON POC. CALL LIGHT WITHIN REACH, WARM BLANKET PROVIDED. PCXR COMPLETED.
[2018-10-27 13:54] LABS: BASOPHILS % (AUTO) 1 % (0-1); EOSINOPHILS % (AUTO) 3 % (1-7); LYMPHOCYTES # (AUTO) 2.13 x10^3/uL (1-3.4); LYMPHOCYTES % (AUTO) 21 % (22-44); MD NO; MEAN CORPUSCULAR HGB CONC 32.9 g/dL (33.2-36.2); MEAN CORPUSCULAR VOLUME 88.2 fL (81-97); MEAN PLATELET VOLUME 7.2 fL (7.4-10.4); MONOCYTES # (AUTO) 0.73 x10^3/uL (0.2-0.8); MONOCYTES % (AUTO) 7 % (2-9); NEUTROPHILS # (AUTO) 6.79 x10^3/uL (1.8-6.8); NEUTROPHILS % (AUTO) 68 % (42-75); PLATELET COUNT 398 x10^3/uL (130-400); RED BLOOD COUNT 4.65 x10^6/uL (4.38-5.82); RED CELL DISTRIBUTION WIDTH 13.4 % (9.4-14.8)
[2018-10-27 14:03] LABS: INTERNATIONAL NORMALIZED RATIO 2.7 (0.93-1.1); PROTHROMBIN TIME 27.3 Seconds (9.6-11.5)
[2018-10-27 14:05] LABS: ALBUMIN 3.2 g/dL (3.4-5.0); ANION GAP 5 mmol/L (5-15); CALCIUM 8.6 mg/dL (8.5-10.1); CHLORIDE 108 mmol/L (98-107); CREATININE 1.16 mg/dL (0.7-1.3)
[2018-10-27 14:09] LABS: TROPONIN I 0.021 ng/mL (0.000-0.045)
--- NOTE | 2018-10-27 14:34 | NUR ---
ALL RESULTS BACK, PT FOR RECHECK.
--- NOTE | 2018-10-27 15:10 | NUR ---
URINAL PROVIDED, AWAITING DISPO FROM ERP.
[2018-10-27 16:44] VITALS: BP 108/65
--- NOTE | 2018-10-27 16:44 | NUR ---
LUNCH RN: UPON DC PT REQUESTING ABX FOR PENDING DENTAL WORK, INFORMED. SCRIPT RECEIVED.
== END 2018-10-27 16:46 | disposition home or self-care (01) ==
LOC: ED 14:10
DX: R07.89 Other chest pain (principal); I25.10 Atherosclerotic heart disease of native coronary artery without angina pectoris; I11.0 Hypertensive heart disease with heart failure; I50.9 Heart failure, unspecified; Z72.9 Problem related to lifestyle, unspecified; F17.200 Nicotine dependence, unspecified, uncomplicated
CPT/HCPCS: 36415; 71045; 80048; 82040; 84484; 85025; 85610; 93005; 99284

== ENCOUNTER 2018-10-31 20:40 | Emergency (ER) | payer MEDICAID ==
[~2018-10-31] VITALS: Ht 165.1 cm; Wt 69.6 kg
[2018-10-31] MEDS ORDERED: CLOP75TA52 PO (21:23)
[2018-10-31 21:50] LABS: BASOPHILS # (AUTO) 0.06 x10^3/uL (0-0.1); BASOPHILS % (AUTO) 1 % (0-1); EOSINOPHILS # (AUTO) 0.36 x10^3/uL (0-0.4); EOSINOPHILS % (AUTO) 4 % (1-7); LYMPHOCYTES # (AUTO) 2.47 x10^3/uL (1-3.4); LYMPHOCYTES % (AUTO) 27 % (22-44); MD NO; MEAN CORPUSCULAR HEMOGLOBIN 29.6 pg (27.5-34.5); MEAN CORPUSCULAR HGB CONC 33.6 g/dL (33.2-36.2); MEAN CORPUSCULAR VOLUME 88.2 fL (81-97); MEAN PLATELET VOLUME 7.5 fL (7.4-10.4); MONOCYTES # (AUTO) 0.57 x10^3/uL (0.2-0.8); MONOCYTES % (AUTO) 6 % (2-9); NEUTROPHILS # (AUTO) 5.74 x10^3/uL (1.8-6.8); NEUTROPHILS % (AUTO) 62 % (42-75); PLATELET COUNT 364 x10^3/uL (130-400); RED BLOOD COUNT 4.43 x10^6/uL (4.38-5.82); RED CELL DISTRIBUTION WIDTH 13.5 % (9.4-14.8)
--- NOTE | 2018-10-31 21:56 | NUR ---
report received from JONNY Martinez at bedside. pt resting on gurney, a&o, resps even and unlabored. nsr on relay adjuster at this time. EDAPRN Lucas aware most recent bp is 88/59, STOCK LAYER awaiting labwork results before ordering IVF.
[2018-10-31 22:01] LABS: INTERNATIONAL NORMALIZED RATIO 1.45 (0.93-1.1)
[2018-10-31 22:03] LABS: ALANINE AMINOTRANSFERASE 37 U/L (12-78); ALBUMIN 3.3 g/dL (3.4-5.0); ANION GAP 8 mmol/L (5-15); CHLORIDE 107 mmol/L (98-107); CREATININE 1.52 mg/dL (0.7-1.3)
[2018-10-31 22:07] LABS: ALKALINE PHOSPHATASE 73 U/L (45-117); BILIRUBIN,TOTAL 0.6 mg/dL (0.2-1.0); TOTAL PROTEIN 7.5 g/dL (6.4-8.2); TROPONIN I 0.034 ng/mL (0.000-0.045)
[2018-10-31 23:16] VITALS: BP 105/63
--- NOTE | 2018-10-31 23:21 | NUR ---
Pt given dc instructions, PIV dc'd with tip intact. pt a&o, resps even and unlabored. pt speaking in full sentences without difficulty. nsr on potline monitor with no ectopy. pt amb to dc desk with steady gait, nadn at dc.
== END 2018-10-31 23:22 | disposition home or self-care (01) ==
LOC: ED 22:11
DX: I11.0 Hypertensive heart disease with heart failure (principal); I50.9 Heart failure, unspecified; R07.9 Chest pain, unspecified; R06.00 Dyspnea, unspecified; N28.9 Disorder of kidney and ureter, unspecified; I25.10 Atherosclerotic heart disease of native coronary artery without angina pectoris; I25.2 Old myocardial infarction
CPT/HCPCS: 36415; 71045; 80053; 83880; 84484; 85025; 85610; 85730; 93005; 99284

== ENCOUNTER 2018-11-15 13:24 | Inpatient (IN) | payer MEDICAID ==
[~2018-11-15] VITALS: Ht 165.1 cm; Wt 75.0 kg
[~2018-11-15 13:24] MED LIST changes: +CLOP75TA52 PO
[2018-11-15] MEDS ORDERED: ASPIRIN 81 MG TABLET CHEW ONE ×2 (13:56→14:02)
[2018-11-15 13:59] LABS: BASOPHILS # (AUTO) 0.03 x10^3/uL (0-0.1); BASOPHILS % (AUTO) 0 % (0-1); EOSINOPHILS # (AUTO) 0.26 x10^3/uL (0-0.4); EOSINOPHILS % (AUTO) 3 % (1-7); LYMPHOCYTES # (AUTO) 1.51 x10^3/uL (1-3.4); LYMPHOCYTES % (AUTO) 20 % (22-44); MD NO; MEAN CORPUSCULAR HEMOGLOBIN 30.1 pg (27.5-34.5); MEAN CORPUSCULAR HGB CONC 33.7 g/dL (33.2-36.2); MEAN CORPUSCULAR VOLUME 89.3 fL (81-97); MEAN PLATELET VOLUME 7.2 fL (7.4-10.4); MONOCYTES # (AUTO) 0.62 x10^3/uL (0.2-0.8); MONOCYTES % (AUTO) 8 % (2-9); NEUTROPHILS # (AUTO) 5.34 x10^3/uL (1.8-6.8); NEUTROPHILS % (AUTO) 69 % (42-75); PLATELET COUNT 327 x10^3/uL (130-400); RED BLOOD COUNT 4.91 x10^6/uL (4.38-5.82); RED CELL DISTRIBUTION WIDTH 13.7 % (9.4-14.8)
[2018-11-15] MEDS ORDERED: SODIUM CHLORIDE FLUSH 10ML SYR IVF ONE (14:00)
[2018-11-15] MEDS ORDERED: ASPIRIN 81 MG TABLET CHEW PO ONE (14:00)
[2018-11-15 14:09] LABS: ALANINE AMINOTRANSFERASE 39 U/L (12-78); ALBUMIN 3.3 g/dL (3.4-5.0); ANION GAP 5 mmol/L (5-15); CALCIUM 8.4 mg/dL (8.5-10.1); CHLORIDE 109 mmol/L (98-107); CREATININE 1.35 mg/dL (0.7-1.3)
[2018-11-15 14:13] LABS: ALKALINE PHOSPHATASE 78 U/L (45-117); BILIRUBIN,TOTAL 0.6 mg/dL (0.2-1.0); TOTAL PROTEIN 7.2 g/dL (6.4-8.2)
[2018-11-15] MEDS ORDERED: CLOPIDOGREL 75 MG TABLET ONE (14:41)
[2018-11-15] MEDS ORDERED: HEPARIN 25,000 UNITS/500ML PMX 500 ML ONE (14:42)
[2018-11-15] MEDS ORDERED: HEPARIN 5,000 UNITS/ML, 1ML ONE (15:08)
[2018-11-15] MEDS: HEPARIN 25,000 UNITS/500ML PMX 500 ML IV PRN (15:14)
[2018-11-15 15:38] LABS: D-DIMER 1.76 ug/mlFEU (0.00-0.52); INTERNATIONAL NORMALIZED RATIO 1.09 (0.93-1.1); PROTHROMBIN TIME 11.4 Seconds (9.6-11.5)
[2018-11-15 15:59] VITALS: BP 109/73
[2018-11-15] MEDS ORDERED: HEPARIN 5,000 UNITS/ML, 1ML IV ONE (16:00)
[2018-11-15] MEDS ORDERED: ONDANSETRON 2MG/ML, 2ML IVPush PRN (16:30)
[2018-11-15] MEDS ORDERED: DOCUSATE 100 MG CAPSULE PO PRN (16:30)
[2018-11-15] MEDS ORDERED: hydrALAzine 20 MG/ML, 1ML IVPush PRN (16:30)
[2018-11-15] MEDS ORDERED: NITROGLYCERIN 0.4 MG BOTTLE (25 TABS) SL PRN (16:30)
[2018-11-15] MEDS ORDERED: CYCLOBENZAPRINE 10 MG TABLET PO PRN (16:30)
[2018-11-15 17:38] VITALS: BP 109/73
[2018-11-15] MEDS ORDERED: WARFARIN 5 MG TABLET PO-COUM ONE (18:00)
[2018-11-15 18:12] LABS: AMPHETAMINE SCREEN, URINE Positive (Negative); BARBITURATE SCREEN, URINE Negative (Negative); BENZODIAZEPINE SCREEN, URINE Negative (Negative); CANNABINOID SCREEN, URINE Positive (Negative); COCAINE SCREEN, URINE Negative (Negative); METHADONE SCREEN, URINE Negative (Negative); OPIATE SCREEN, URINE Negative (Negative)
[2018-11-15 18:29] VITALS: BP 114/78
[2018-11-15] MEDS: CARVEDILOL 12.5 MG TABLET PO SCH (18:30)
[2018-11-15] MEDS: LOSARTAN 50MG TABLET PO SCH (20:01)
[2018-11-15] MEDS: MAGNESIUM OXIDE 400 MG TABLET PO SCH (20:01)
[2018-11-15] MEDS: ATORVASTATIN 40 MG TABLET PO SCH (20:04)
[2018-11-15 20:30] VITALS: BP 128/69
[2018-11-15] MEDS: HEPARIN 5,000 UNITS/ML, 1ML IV PRN (22:07)
[2018-11-16 01:45] VITALS: BP 124/78
[2018-11-16 04:39] LABS: ANION GAP 5 mmol/L (5-15); CALCIUM 7.7 mg/dL (8.5-10.1); CHLORIDE 107 mmol/L (98-107); CREATININE 1.12 mg/dL (0.7-1.3)
[2018-11-16 04:42] LABS: INTERNATIONAL NORMALIZED RATIO 1.04 (0.93-1.1); PROTHROMBIN TIME 10.9 Seconds (9.6-11.5)
[2018-11-16 04:49] LABS: THYROID STIMULATING HORMONE 0.124 mIU/L (0.358-3.740)
[2018-11-16 04:52] LABS: BASOPHILS # (AUTO) 0.05 x10^3/uL (0-0.1); BASOPHILS % (AUTO) 1 % (0-1); EOSINOPHILS # (AUTO) 0.45 x10^3/uL (0-0.4); EOSINOPHILS % (AUTO) 6 % (1-7); LYMPHOCYTES # (AUTO) 2.38 x10^3/uL (1-3.4); LYMPHOCYTES % (AUTO) 31 % (22-44); MD NO; MEAN CORPUSCULAR HGB CONC 33.5 g/dL (33.2-36.2); MEAN CORPUSCULAR VOLUME 89.4 fL (81-97); MEAN PLATELET VOLUME 7.2 fL (7.4-10.4); MONOCYTES # (AUTO) 0.97 x10^3/uL (0.2-0.8); MONOCYTES % (AUTO) 13 % (2-9); NEUTROPHILS # (AUTO) 3.82 x10^3/uL (1.8-6.8); NEUTROPHILS % (AUTO) 50 % (42-75); PLATELET COUNT 272 x10^3/uL (130-400); RED BLOOD COUNT 4.18 x10^6/uL (4.38-5.82); RED CELL DISTRIBUTION WIDTH 13.9 % (9.4-14.8)
[2018-11-16] MEDS: CARVEDILOL 12.5 MG TABLET PO SCH ×2 (06:00→17:19)
[2018-11-16 06:23] VITALS: BP 124/77
[2018-11-16 08:36] LABS: TROPONIN I 0.229 ng/mL (0.000-0.045)
[2018-11-16] MEDS: POTASSIUM CHLORIDE 20 MEQ TAB.ER.PRT PO SCH (08:55)
[2018-11-16] MEDS: ASPIRIN 81 MG TABLET EC PO SCH (08:55)
[2018-11-16] MEDS: SPIRONOLACTONE 25 MG TABLET PO SCH (08:55)
[2018-11-16] MEDS: MAGNESIUM OXIDE 400 MG TABLET PO SCH ×2 (08:55→20:55)
[2018-11-16] MEDS: LOSARTAN 50MG TABLET PO SCH ×2 (08:55→20:55)
[2018-11-16] MEDS: CLOPIDOGREL 75 MG TABLET PO SCH (08:55)
[2018-11-16 08:56] VITALS: BP 128/68
[2018-11-16] MEDS ORDERED: CLOPIDOGREL 75 MG TABLET PO SCH (09:00)
[2018-11-16] MEDS ORDERED: WARFARIN 2 MG TABLET PO-COUM SCH (09:00)
[2018-11-16 13:18] VITALS: BP 125/75
[2018-11-16] MEDS: HEPARIN 25,000 UNITS/500ML PMX 500 ML IV PRN (17:21)
[2018-11-16] MEDS ORDERED: WARFARIN 5 MG TABLET PO-COUM ONE (18:00)
[2018-11-16 19:31] VITALS: BP 131/87
[2018-11-16] MEDS: ATORVASTATIN 40 MG TABLET PO SCH (20:55)
[2018-11-17 00:06] VITALS: BP 129/87
[2018-11-17 05:09] VITALS: BP 128/78
[2018-11-17] MEDS: CARVEDILOL 12.5 MG TABLET PO SCH ×2 (05:10→17:56)
[2018-11-17 05:27] LABS: INTERNATIONAL NORMALIZED RATIO 1.77 (0.93-1.1); PROTHROMBIN TIME 18.2 Seconds (9.6-11.5)
[2018-11-17 05:32] LABS: BASOPHILS # (AUTO) 0.02 x10^3/uL (0-0.1); BASOPHILS % (AUTO) 0 % (0-1); EOSINOPHILS # (AUTO) 0.29 x10^3/uL (0-0.4); EOSINOPHILS % (AUTO) 3 % (1-7); LYMPHOCYTES # (AUTO) 1.63 x10^3/uL (1-3.4); LYMPHOCYTES % (AUTO) 15 % (22-44); MD NO; MEAN CORPUSCULAR HEMOGLOBIN 30.2 pg (27.5-34.5); MEAN CORPUSCULAR HGB CONC 33.4 g/dL (33.2-36.2); MEAN CORPUSCULAR VOLUME 90.2 fL (81-97); MEAN PLATELET VOLUME 7.4 fL (7.4-10.4); MONOCYTES % (AUTO) 8 % (2-9); NEUTROPHILS # (AUTO) 8.36 x10^3/uL (1.8-6.8); NEUTROPHILS % (AUTO) 75 % (42-75); PLATELET COUNT 267 x10^3/uL (130-400); RED CELL DISTRIBUTION WIDTH 13.8 % (9.4-14.8)
[2018-11-17 05:34] LABS: CHLORIDE 110 mmol/L (98-107)
[2018-11-17 05:42] LABS: ANION GAP 5 mmol/L (5-15); CALCIUM 8.2 mg/dL (8.5-10.1); CREATININE 1.04 mg/dL (0.7-1.3)
[2018-11-17 07:31] VITALS: BP 135/89
[2018-11-17] MEDS: HEPARIN 5,000 UNITS/ML, 1ML IV PRN (07:44)
[2018-11-17] MEDS: POTASSIUM CHLORIDE 20 MEQ TAB.ER.PRT PO SCH (10:06)
[2018-11-17] MEDS: CLOPIDOGREL 75 MG TABLET PO SCH (10:06)
[2018-11-17] MEDS: MAGNESIUM OXIDE 400 MG TABLET PO SCH ×2 (10:06→20:02)
[2018-11-17] MEDS: ASPIRIN 81 MG TABLET EC PO SCH (10:06)
[2018-11-17] MEDS: SPIRONOLACTONE 25 MG TABLET PO SCH (10:06)
[2018-11-17] MEDS: LOSARTAN 50MG TABLET PO SCH ×2 (10:07→20:02)
[2018-11-17] MEDS ORDERED: WARFARIN 3 MG TABLET PO-COUM ONE ×2 (13:30→18:00)
[2018-11-17 14:00] VITALS: BP 120/72
[2018-11-17] MEDS: HEPARIN 25,000 UNITS/500ML PMX 500 ML IV PRN (18:01)
[2018-11-17] MEDS ORDERED: ACETAMINOPHEN 325 MG TABLET PO PRN (18:30)
[2018-11-17 19:56] VITALS: BP 128/77
[2018-11-17] MEDS: ATORVASTATIN 40 MG TABLET PO SCH (20:02)
[2018-11-18 01:33] VITALS: BP 129/83
[2018-11-18] MEDS: CARVEDILOL 12.5 MG TABLET PO SCH (06:01)
[2018-11-18 07:28] LABS: BASOPHILS # (AUTO) 0.03 x10^3/uL (0-0.1); BASOPHILS % (AUTO) 0 % (0-1); EOSINOPHILS # (AUTO) 0.35 x10^3/uL (0-0.4); EOSINOPHILS % (AUTO) 4 % (1-7); LYMPHOCYTES # (AUTO) 1.51 x10^3/uL (1-3.4); LYMPHOCYTES % (AUTO) 15 % (22-44); MD NO; MEAN CORPUSCULAR HEMOGLOBIN 29.6 pg (27.5-34.5); MEAN CORPUSCULAR HGB CONC 33.3 g/dL (33.2-36.2); MEAN CORPUSCULAR VOLUME 89.1 fL (81-97); MEAN PLATELET VOLUME 7.2 fL (7.4-10.4); MONOCYTES # (AUTO) 0.78 x10^3/uL (0.2-0.8); MONOCYTES % (AUTO) 8 % (2-9); NEUTROPHILS # (AUTO) 7.54 x10^3/uL (1.8-6.8); NEUTROPHILS % (AUTO) 74 % (42-75); PLATELET COUNT 309 x10^3/uL (130-400); RED BLOOD COUNT 4.59 x10^6/uL (4.38-5.82); RED CELL DISTRIBUTION WIDTH 14.1 % (9.4-14.8)
[2018-11-18 07:33] LABS: INTERNATIONAL NORMALIZED RATIO 2.56 (0.93-1.1); PROTHROMBIN TIME 25.9 Seconds (9.6-11.5)
[2018-11-18 07:35] LABS: ANION GAP 6 mmol/L (5-15); CALCIUM 8.7 mg/dL (8.5-10.1); CHLORIDE 109 mmol/L (98-107)
[2018-11-18 08:21] VITALS: BP 123/76
[2018-11-18] MEDS: POTASSIUM CHLORIDE 20 MEQ TAB.ER.PRT PO SCH (08:22)
[2018-11-18] MEDS: ASPIRIN 81 MG TABLET EC PO SCH (08:22)
[2018-11-18] MEDS: CLOPIDOGREL 75 MG TABLET PO SCH (08:22)
[2018-11-18] MEDS: LOSARTAN 50MG TABLET PO SCH (08:23)
[2018-11-18] MEDS: MAGNESIUM OXIDE 400 MG TABLET PO SCH (08:23)
[2018-11-18] MEDS: SPIRONOLACTONE 25 MG TABLET PO SCH (08:23)
[2018-11-18] MEDS ORDERED: WARF2TAB PO (11:35)
[2018-11-18] MEDS ORDERED: WARFARIN 3 MG TABLET PO-COUM ONE (18:00)
== END 2018-11-18 13:25 | disposition home or self-care (01) | DRG 281 ==
LOC: ED 14:37 → EDIP 14:43 → 5SO 15:48 → DCLOUNGE 11-18 13:13
PROVIDERS: ADMIT Internal Medicine; ATTEND Internal Medicine
DX: I21.4 Non-ST elevation (NSTEMI) myocardial infarction (principal); I13.0 Hypertensive heart and chronic kidney disease with heart failure and stage 1 through stage 4 chronic kidney disease, or unspecified chronic kidney disease; I50.42 Chronic combined systolic (congestive) and diastolic (congestive) heart failure; D64.9 Anemia, unspecified; F15.10 Other stimulant abuse, uncomplicated; I07.1 Rheumatic tricuspid insufficiency; N18.2 Chronic kidney disease, stage 2 (mild); E11.22 Type 2 diabetes mellitus with diabetic chronic kidney disease; K75.89 Other specified inflammatory liver diseases; I25.10 Atherosclerotic heart disease of native coronary artery without angina pectoris; I25.5 Ischemic cardiomyopathy; Z72.0 Tobacco use; I25.2 Old myocardial infarction; Z91.14 Patient's other noncompliance with medication regimen; Z88.5 Allergy status to narcotic agent; Z79.84 Long term (current) use of oral hypoglycemic drugs
CPT/HCPCS: 36415; 71045; 80048; 80053; 80307; 83735; 83880; 84100; 84443; 84484; 85025; 85379; 85520; 85610; 85730; 93005; 93306; 96374; G0378; J1644

== ENCOUNTER 2018-11-25 12:48 | Emergency (ER) | payer MEDICAID ==
[~2018-11-25] VITALS: Ht 165.1 cm; Wt 67.7 kg
[2018-11-25 13:27] VITALS: BP 116/69
== END 2018-11-25 14:23 | disposition home or self-care (01) ==
LOC: ED 14:17
DX: K02.9 Dental caries, unspecified (principal); I25.2 Old myocardial infarction; I11.0 Hypertensive heart disease with heart failure; I50.9 Heart failure, unspecified; I25.10 Atherosclerotic heart disease of native coronary artery without angina pectoris; F17.200 Nicotine dependence, unspecified, uncomplicated
CPT/HCPCS: 99283

== ENCOUNTER 2018-11-27 22:55 | Emergency (ER) | payer MEDICAID ==
[~2018-11-27] VITALS: Ht 165.1 cm; Wt 71.8 kg
[2018-11-27] MEDS ORDERED: ASPIRIN 81 MG TABLET CHEW PO ONE (23:30)
[2018-11-27 23:33] LABS: BASOPHILS # (AUTO) 0.08 x10^3/uL (0-0.1); BASOPHILS % (AUTO) 1 % (0-1); EOSINOPHILS # (AUTO) 0.27 x10^3/uL (0-0.4); EOSINOPHILS % (AUTO) 2 % (1-7); LYMPHOCYTES # (AUTO) 2.41 x10^3/uL (1-3.4); LYMPHOCYTES % (AUTO) 18 % (22-44); MD NO; MEAN CORPUSCULAR HEMOGLOBIN 29.8 pg (27.5-34.5); MEAN CORPUSCULAR HGB CONC 33.4 g/dL (33.2-36.2); MEAN CORPUSCULAR VOLUME 89.2 fL (81-97); MEAN PLATELET VOLUME 7.2 fL (7.4-10.4); MONOCYTES # (AUTO) 0.85 x10^3/uL (0.2-0.8); MONOCYTES % (AUTO) 6 % (2-9); NEUTROPHILS % (AUTO) 74 % (42-75); PLATELET COUNT 447 x10^3/uL (130-400); RED BLOOD COUNT 4.41 x10^6/uL (4.38-5.82); RED CELL DISTRIBUTION WIDTH 13.8 % (9.4-14.8)
[2018-11-27 23:41] LABS: ALANINE AMINOTRANSFERASE 41 U/L (12-78); ALBUMIN 3.2 g/dL (3.4-5.0); ANION GAP 5 mmol/L (5-15); CALCIUM 8.4 mg/dL (8.5-10.1); CHLORIDE 108 mmol/L (98-107); CREATININE 1.17 mg/dL (0.7-1.3)
[2018-11-27 23:45] VITALS: BP 127/88
--- NOTE | 2018-11-27 23:45 | NUR ---
"I WOKE UP THIS MORNING WITH MY CHEST FEELING HEAVY." STATES L AND R SIDE CP. STATES SOB. STATES AK Sep THIS YEAR W/ STENT PLACEMENT. OFF BLOOD THINNERSx4 DAYS. MONITORS APPLIED, SIDERAISL UP X2, CALL LIGHT WITHIN REACH
[2018-11-27 23:46] LABS: ALKALINE PHOSPHATASE 79 U/L (45-117); BILIRUBIN,TOTAL 0.3 mg/dL (0.2-1.0); TOTAL PROTEIN 7.3 g/dL (6.4-8.2); TROPONIN I 0.023 ng/mL (0.000-0.045)
[2018-11-27] MEDS ORDERED: ASPIRIN 81 MG TABLET CHEW ONE (23:47)
[2018-11-27] MEDS ORDERED: LOSA100T14 PO (23:56)
[2018-11-27] MEDS ORDERED: AMOX-291 PO (23:56)
[2018-11-27] MEDS ORDERED: NITR9CAP3 SL (23:56)
[2018-11-27] MEDS ORDERED: ATOR40TA78 PO (23:56)
[2018-11-27] MEDS ORDERED: FURO20TA3 PO (23:56)
[2018-11-27] MEDS ORDERED: ISOS30TA8 PO (23:56)
== END 2018-11-28 00:41 | disposition home or self-care (01) ==
LOC: ED 23:59
DX: R07.89 Other chest pain (principal); Z72.9 Problem related to lifestyle, unspecified; R06.02 Shortness of breath; R42 Dizziness and giddiness; I11.9 Hypertensive heart disease without heart failure; E11.9 Type 2 diabetes mellitus without complications; I25.10 Atherosclerotic heart disease of native coronary artery without angina pectoris; I25.2 Old myocardial infarction; E78.5 Hyperlipidemia, unspecified; F17.210 Nicotine dependence, cigarettes, uncomplicated; Z88.5 Allergy status to narcotic agent; Z88.1 Allergy status to other antibiotic agents; Z98.61 Coronary angioplasty status
CPT/HCPCS: 10060; 36415; 71046; 80053; 83690; 83880; 84484; 85025; 93005; 99283; 99284

== ENCOUNTER 2018-12-08 02:18 | Emergency (ER) | payer MEDICAID ==
[~2018-12-08] VITALS: Ht 175.3 cm; Wt 71.6 kg
[~2018-12-08 02:18] MED LIST changes: +AMOX-291 PO; +FURO20TA3 PO; +ISOS30TA8 PO; +LOSA100T14 PO; +NITR9CAP3 SL
[2018-12-08] MEDS ORDERED: WARF3TAB52 PO (02:57)
[2018-12-08] MEDS ORDERED: ONDANSETRON ODT 4 MG PO ONE (03:00)
[2018-12-08 03:20] LABS: BASOPHILS # (AUTO) 0.04 x10^3/uL (0-0.1); BASOPHILS % (AUTO) 0 % (0-1); EOSINOPHILS # (AUTO) 0.52 x10^3/uL (0-0.4); EOSINOPHILS % (AUTO) 5 % (1-7); LYMPHOCYTES # (AUTO) 2.21 x10^3/uL (1-3.4); LYMPHOCYTES % (AUTO) 23 % (22-44); MD NO; MEAN CORPUSCULAR HEMOGLOBIN 29.3 pg (27.5-34.5); MEAN CORPUSCULAR HGB CONC 32.9 g/dL (33.2-36.2); MEAN PLATELET VOLUME 7.3 fL (7.4-10.4); MONOCYTES # (AUTO) 0.78 x10^3/uL (0.2-0.8); MONOCYTES % (AUTO) 8 % (2-9); NEUTROPHILS # (AUTO) 6.12 x10^3/uL (1.8-6.8); NEUTROPHILS % (AUTO) 63 % (42-75); PLATELET COUNT 356 x10^3/uL (130-400); RED BLOOD COUNT 4.26 x10^6/uL (4.38-5.82); RED CELL DISTRIBUTION WIDTH 13.9 % (9.4-14.8)
[2018-12-08 03:32] LABS: ALANINE AMINOTRANSFERASE 46 U/L (12-78); ALBUMIN 3.1 g/dL (3.4-5.0); ANION GAP 4 mmol/L (5-15); CALCIUM 7.9 mg/dL (8.5-10.1); CHLORIDE 113 mmol/L (98-107); CREATININE 1.53 mg/dL (0.7-1.3)
[2018-12-08 03:35] LABS: MICROSCOPIC NOT IND
[2018-12-08 03:35] LABS: ALKALINE PHOSPHATASE 70 U/L (45-117); BILIRUBIN,TOTAL 0.3 mg/dL (0.2-1.0); TOTAL PROTEIN 6.4 g/dL (6.4-8.2)
[2018-12-08 03:45] LABS: CULTURE INDICATED? NO
[2018-12-08 04:22] VITALS: BP 112/62
== END 2018-12-08 04:29 | disposition home or self-care (01) ==
LOC: ED 02:42
DX: N28.9 Disorder of kidney and ureter, unspecified (principal); R11.0 Nausea; E78.5 Hyperlipidemia, unspecified; I25.2 Old myocardial infarction; I25.10 Atherosclerotic heart disease of native coronary artery without angina pectoris; I50.9 Heart failure, unspecified; I11.0 Hypertensive heart disease with heart failure; E11.9 Type 2 diabetes mellitus without complications
CPT/HCPCS: 36415; 71045; 80053; 81003; 83690; 85025; 93005; 99284

== ENCOUNTER 2019-02-02 23:36 | Emergency (ER) | payer MEDICAID ==
[~2019-02-02] VITALS: Ht 165.1 cm; Wt 70.7 kg
[~2019-02-02 23:36] MED LIST changes: +WARF3TAB52 PO
[2019-02-03] MEDS ORDERED: SODIUM CHLORIDE FLUSH 10ML SYR IVF ONE (00:30)
[2019-02-03 00:34] LABS: BASOPHILS # (AUTO) 0.05 x10^3/uL (0-0.1); BASOPHILS % (AUTO) 1 % (0-1); EOSINOPHILS # (AUTO) 0.39 x10^3/uL (0-0.4); EOSINOPHILS % (AUTO) 5 % (1-7); LYMPHOCYTES # (AUTO) 2.13 x10^3/uL (1-3.4); LYMPHOCYTES % (AUTO) 27 % (22-44); MD NO; MEAN CORPUSCULAR HEMOGLOBIN 29.9 pg (27.5-34.5); MEAN CORPUSCULAR HGB CONC 33.2 g/dL (33.2-36.2); MEAN CORPUSCULAR VOLUME 90.1 fL (81-97); MEAN PLATELET VOLUME 7.2 fL (7.4-10.4); MONOCYTES # (AUTO) 0.68 x10^3/uL (0.2-0.8); MONOCYTES % (AUTO) 9 % (2-9); NEUTROPHILS # (AUTO) 4.78 x10^3/uL (1.8-6.8); NEUTROPHILS % (AUTO) 60 % (42-75); PLATELET COUNT 311 x10^3/uL (130-400); RED BLOOD COUNT 4.44 x10^6/uL (4.38-5.82); RED CELL DISTRIBUTION WIDTH 13.4 % (9.4-14.8)
[2019-02-03 00:41] LABS: INTERNATIONAL NORMALIZED RATIO 0.97 (0.93-1.1); PROTHROMBIN TIME 10.2 Seconds (9.6-11.5)
[2019-02-03 00:45] LABS: ALANINE AMINOTRANSFERASE 39 U/L (12-78); ALBUMIN 3.5 g/dL (3.4-5.0); ANION GAP 6 mmol/L (5-15); CALCIUM 8.7 mg/dL (8.5-10.1); CHLORIDE 110 mmol/L (98-107); CREATININE 1.11 mg/dL (0.7-1.3)
[2019-02-03 00:50] LABS: ALKALINE PHOSPHATASE 60 U/L (45-117); BILIRUBIN,TOTAL 0.6 mg/dL (0.2-1.0); TOTAL PROTEIN 7.3 g/dL (6.4-8.2); TROPONIN I 0.029 ng/mL (0.000-0.045)
--- NOTE | 2019-02-03 01:30 | NUR ---
PT IN BED WITH EYES CLOSED, DOZING IN BED. NO C/O PAIN AT THIS TIME.
[2019-02-03 02:54] VITALS: BP 129/84
== END 2019-02-03 02:55 | disposition home or self-care (01) ==
LOC: ED 02-03 01:43
DX: R07.2 Precordial pain (principal); Z72.9 Problem related to lifestyle, unspecified; E78.5 Hyperlipidemia, unspecified; E11.9 Type 2 diabetes mellitus without complications; I25.2 Old myocardial infarction; I25.10 Atherosclerotic heart disease of native coronary artery without angina pectoris; I10 Essential (primary) hypertension; F17.200 Nicotine dependence, unspecified, uncomplicated; Z88.5 Allergy status to narcotic agent; Z88.6 Allergy status to analgesic agent
CPT/HCPCS: 36415; 71045; 80053; 83880; 84484; 85025; 85610; 85730; 93005; 99284

== ENCOUNTER 2019-05-14 13:09 | Observation (INO) | payer MEDICAID ==
[~2019-05-14] VITALS: Ht 165.1 cm; Wt 71.9 kg
[~2019-05-14 13:09] MED LIST changes: +NITR9CAP SL; -NITR9CAP3 SL
--- NOTE | 2019-05-14 13:18 | NUR ---
EKG TO DR STOUT
--- NOTE | 2019-05-14 13:26 | NUR ---
PT HERE FOR CP THAT STARTED 0 THIS AM, PT TO RM 02 FROM NATALIE. ERMD IN TO KIM PT, CODE CARDIAC CALLED. CODE CARDIAC TEAM TO . DR NICE TO .
--- NOTE | 2019-05-14 13:26 | NUR ---
1324 - CODE CARDIAC INITIATED PER DR. STOUT 1324 - CALL TO CARDIOLOGY, ON HOLD. SPOKE WITH STAFF AT 1327 FOR CARDIOLOGY TO BE PAGED.
[2019-05-14] MEDS ORDERED: ASPIRIN 325 MG TABLET PO STA (13:28)
--- NOTE | 2019-05-14 13:28 | NUR ---
PIVS STARTED. ASA GIVEN NOW
--- NOTE | 2019-05-14 13:33 | NUR ---
DR NICE CANCELLED CODE CARDIAC
[2019-05-14] MEDS ORDERED: ASPIRIN 81 MG TABLET CHEW ONE (13:34)
[2019-05-14 13:43] LABS: BASOPHILS # (AUTO) 0.03 x10^3/uL (0-0.1); BASOPHILS % (AUTO) 0 % (0-1); EOSINOPHILS # (AUTO) 0.44 x10^3/uL (0-0.4); EOSINOPHILS % (AUTO) 5 % (1-7); LYMPHOCYTES # (AUTO) 2.14 x10^3/uL (1-3.4); LYMPHOCYTES % (AUTO) 24 % (22-44); MD NO; MEAN CORPUSCULAR HEMOGLOBIN 29.7 pg (27.5-34.5); MEAN CORPUSCULAR HGB CONC 33.1 g/dL (33.2-36.2); MEAN CORPUSCULAR VOLUME 89.5 fL (81-97); MEAN PLATELET VOLUME 7.1 fL (7.4-10.4); MONOCYTES # (AUTO) 0.96 x10^3/uL (0.2-0.8); MONOCYTES % (AUTO) 11 % (2-9); NEUTROPHILS # (AUTO) 5.53 x10^3/uL (1.8-6.8); NEUTROPHILS % (AUTO) 61 % (42-75); PLATELET COUNT 303 x10^3/uL (130-400); RED BLOOD COUNT 4.74 x10^6/uL (4.38-5.82); RED CELL DISTRIBUTION WIDTH 14.2 % (9.4-14.8)
[2019-05-14 13:53] LABS: INTERNATIONAL NORMALIZED RATIO 1.01 (0.93-1.1); PROTHROMBIN TIME 10.6 Seconds (9.6-11.5)
[2019-05-14 13:58] LABS: TROPONIN I < 0.015 ng/mL (0.000-0.045)
[2019-05-14] MEDS ORDERED: NITROGLYCERIN OINT 2%, 1GM TP ONE ×2 (14:00→14:03)
--- NOTE | 2019-05-14 14:09 | NUR ---
PT MEDICATED PER OCT, PT AMBULATED TO BR WITH STEADY GAIT, UDS COLLECTED AND SENT TO LAB
[2019-05-14 14:17] LABS: ALANINE AMINOTRANSFERASE 35 U/L (12-78); ALBUMIN 3.6 g/dL (3.4-5.0); CHOLESTEROL, TOTAL 132 mg/dL (140-239)
[2019-05-14 14:21] LABS: ALKALINE PHOSPHATASE 68 U/L (45-117); BILIRUBIN, DIRECT < 0.1 mg/dL (0.1-0.2); BILIRUBIN,TOTAL 0.3 mg/dL (0.2-1.0); HDL CHOLESTEROL (DIRECT) 46 mg/dL (40-60); TOTAL PROTEIN 7.4 g/dL (6.4-8.2); TRIGLYCERIDES 155 mg/dL (50-200); VLDL CHOLESTEROL 31 mg/dL (0-25)
[2019-05-14] MEDS ORDERED: NITROGLYCERIN 0.4 MG BOTTLE (25 TABS) SL PRN (14:30)
[2019-05-14] MEDS ORDERED: NITROGLYCERIN 0.4 MG/SPRAY SL PRN (14:30)
[2019-05-14] MEDS ORDERED: HEPARIN 5,000 UNITS/ML, 1ML IV ONE (14:30)
[2019-05-14] MEDS ORDERED: LIDODERM 5% PATCH TD PRN (14:30)
[2019-05-14] MEDS ORDERED: ASPIRIN 325 MG TABLET EC PO ONE (14:30)
--- NOTE | 2019-05-14 14:50 | NUR ---
HOSPITALIST ORDERED HEPARIN GTT FOR ACS PROTOCOL, 10A LAB ORDRED FOR BASELINE
[2019-05-14 14:54] LABS: BILIRUBIN,INDIRECT 0.2 mg/dL (0.0-2.0); CHOL/HDL RATIO 2.9; HDL CHOL % 35 % (26-37); LDL CHOLESTEROL,CALCULATED 55 mg/dL (54-169); LDL/HDL RATIO 1.2 (0.5-3.0)
[2019-05-14 15:07] LABS: AMPHETAMINE SCREEN, URINE Negative (Negative); BARBITURATE SCREEN, URINE Negative (Negative); BENZODIAZEPINE SCREEN, URINE Negative (Negative); CANNABINOID SCREEN, URINE Positive (Negative); COCAINE SCREEN, URINE Negative (Negative); METHADONE SCREEN, URINE Negative (Negative); OPIATE SCREEN, URINE Negative (Negative)
[2019-05-14] MEDS ORDERED: HEPARIN 5,000 UNITS/ML, 1ML ONE (15:07)
[2019-05-14] MEDS ORDERED: HEPARIN 25,000 UNITS/500ML PMX 500 ML ONE (15:08)
[2019-05-14] MEDS: HEPARIN 25,000 UNITS/500ML PMX 500 ML IV PRN (15:28)
--- NOTE | 2019-05-14 15:31 | NUR ---
HEPARIN GTT BEGAN, 10A ORDERED PER POLICY. VSS, NAD NOTED.
[2019-05-14 18:22] LABS: TROPONIN I < 0.015 ng/mL (0.000-0.045)
[2019-05-14] MEDS ORDERED: CARVEDILOL 3.125 MG TABLET ONE (18:37)
[2019-05-14] MEDS: CARVEDILOL 6.25 MG TABLET PO SCH (18:37)
--- NOTE | 2019-05-14 18:41 | NUR ---
PT RESTING ON GURNEY, MEDICATED PER OCT. PT PROVIDED WITH BLANKET PER REQUEST. DIET TRAY ORDERED. NAD NOTED
--- NOTE | 2019-05-14 19:16 | NUR ---
PT RESTING ON GURNEY, MONITORS IN PLACE, CALL LIGHT WITHIN REACH, PROVIDED PT WITH PILLOW, DENIES FURTHER NEEDS. HEPARIN GTT INFUSING AT 800 UNITS/HR
[2019-05-14 20:07] VITALS: BP 134/84
[2019-05-14] MEDS: ATORVASTATIN 80 MG TABLET PO SCH (21:23)
[2019-05-14] MEDS: SODIUM CHLORIDE FLUSH 10ML SYR IVF SCH (21:23)
[2019-05-14 21:58] LABS: TROPONIN I < 0.015 ng/mL (0.000-0.045)
[2019-05-15 01:21] VITALS: BP 121/75
[2019-05-15] MEDS: HEPARIN 5,000 UNITS/ML, 1ML IV PRN (04:43)
[2019-05-15] MEDS: CARVEDILOL 6.25 MG TABLET PO SCH ×2 (05:25→07:38)
[2019-05-15 07:34] VITALS: BP 118/82
[2019-05-15] MEDS: ASPIRIN 325 MG TABLET EC PO SCH (07:38)
[2019-05-15] MEDS: SODIUM CHLORIDE FLUSH 10ML SYR IVF SCH ×2 (07:41→20:44)
[2019-05-15] MEDS: CLOPIDOGREL 75 MG TABLET PO SCH (07:41)
[2019-05-15] MEDS ORDERED: REGADENOSON 0.4 MG/5 ML SYRINGE ONE (10:28)
[2019-05-15 15:08] VITALS: BP 126/85
[2019-05-15] MEDS: CARVEDILOL 12.5 MG TABLET PO SCH (17:43)
[2019-05-15 20:29] VITALS: BP 127/88
[2019-05-15] MEDS: HEPARIN 25,000 UNITS/500ML PMX 500 ML IV PRN (20:43)
[2019-05-15] MEDS: ATORVASTATIN 80 MG TABLET PO SCH (20:44)
[2019-05-16 02:02] VITALS: BP 118/86
[2019-05-16] MEDS: CARVEDILOL 12.5 MG TABLET PO SCH (05:42)
[2019-05-16] MEDS: ASPIRIN 325 MG TABLET EC PO SCH (05:42)
[2019-05-16] MEDS: HEPARIN 5,000 UNITS/ML, 1ML IV PRN (05:56)
[2019-05-16 07:31] VITALS: BP 134/93
[2019-05-16] MEDS ORDERED: RIVA20TA PO (08:37)
[2019-05-16] MEDS ORDERED: SPIRONOLACTONE 25 MG TABLET PO SCH (09:00)
[2019-05-16] MEDS ORDERED: RIVAROXABAN 20 MG TABLET PO SCH ×2 (09:00→17:00)
[2019-05-16] MEDS ORDERED: LOSARTAN 25MG TABLET PO SCH (09:00)
[2019-05-16] MEDS: CLOPIDOGREL 75 MG TABLET PO SCH (10:12)
[2019-05-16] MEDS: SODIUM CHLORIDE FLUSH 10ML SYR IVF SCH (10:12)
[2019-06-09] MEDS ORDERED: CARV3.122 PO (19:32)
[2019-06-09] MEDS ORDERED: FURO20TA3 PO (19:32)
[2019-06-09] MEDS ORDERED: CLIN300C8 PO (19:32)
== END 2019-05-16 11:58 | disposition home or self-care (01) ==
LOC: ED 13:34 → INTOOBSV 14:03 → UNDOADMOB 14:03 → EDIP 14:03 → 5SO 19:54 → DCLOUNGE 05-16 11:48
PROVIDERS: ADMIT Internal Medicine; ATTEND Internal Medicine
DX: R07.89 Other chest pain (principal); I25.5 Ischemic cardiomyopathy; I25.10 Atherosclerotic heart disease of native coronary artery without angina pectoris; F15.10 Other stimulant abuse, uncomplicated; I13.0 Hypertensive heart and chronic kidney disease with heart failure and stage 1 through stage 4 chronic kidney disease, or unspecified chronic kidney disease; I50.42 Chronic combined systolic (congestive) and diastolic (congestive) heart failure; N18.2 Chronic kidney disease, stage 2 (mild); I25.2 Old myocardial infarction; E11.22 Type 2 diabetes mellitus with diabetic chronic kidney disease; E78.5 Hyperlipidemia, unspecified; F17.210 Nicotine dependence, cigarettes, uncomplicated; Z59.0 Homelessness; Z79.01 Long term (current) use of anticoagulants; Z79.02 Long term (current) use of antithrombotics/antiplatelets; Z79.899 Other long term (current) drug therapy; Z95.5 Presence of coronary angioplasty implant and graft
CPT/HCPCS: 0399T; 36415; 71045; 78452; 80047; 80061; 80076; 80307; 84484; 85025; 85520; 85610; 85730; 93005; 93017; 93306; 96365; 96366; 96376; 99284; A9502; G0378; J1644; J2785

== ENCOUNTER 2019-06-10 18:16 | Inpatient (IN) | payer MEDICAID ==
[~2019-06-10] VITALS: Ht 165.1 cm; Wt 71.0 kg
[~2019-06-10 18:16] MED LIST changes: +CARV3.122 PO; +CLIN300C8 PO; +RIVA20TA PO
--- NOTE | 2019-06-10 18:37 | NUR ---
PT ON ALL MONITORS. HR 100s-110s, SINUS TACH. STATES QUIT METH A COUPLE WEEKS AGO. OTHER VSS.
[2019-06-10 19:27] LABS: BASOPHILS # (AUTO) 0.03 x10^3/uL (0-0.1); BASOPHILS % (AUTO) 0 % (0-1); EOSINOPHILS % (AUTO) 3 % (1-7); LYMPHOCYTES # (AUTO) 1.37 x10^3/uL (1-3.4); LYMPHOCYTES % (AUTO) 12 % (22-44); MD NO; MEAN CORPUSCULAR HEMOGLOBIN 29.8 pg (27.5-34.5); MEAN CORPUSCULAR HGB CONC 33.4 g/dL (33.2-36.2); MEAN CORPUSCULAR VOLUME 89.3 fL (81-97); MEAN PLATELET VOLUME 6.8 fL (7.4-10.4); MONOCYTES # (AUTO) 0.78 x10^3/uL (0.2-0.8); MONOCYTES % (AUTO) 7 % (2-9); NEUTROPHILS # (AUTO) 9.42 x10^3/uL (1.8-6.8); NEUTROPHILS % (AUTO) 79 % (42-75); PLATELET COUNT 358 x10^3/uL (130-400); RED BLOOD COUNT 4.26 x10^6/uL (4.38-5.82); RED CELL DISTRIBUTION WIDTH 13.6 % (9.4-14.8)
--- NOTE | 2019-06-10 19:27 | NUR ---
IV PLACED, RV'WD POC WITH PT.
[2019-06-10] MEDS ORDERED: SODIUM CHLORIDE FLUSH 10ML SYR IVF ONE (19:30)
[2019-06-10 19:37] LABS: ALBUMIN 3.3 g/dL (3.4-5.0); ANION GAP 7 mmol/L (5-15); CALCIUM 8.9 mg/dL (8.5-10.1); CHLORIDE 106 mmol/L (98-107); CREATININE 1.48 mg/dL (0.7-1.3)
--- NOTE | 2019-06-10 19:46 | NUR ---
PT TO CT VIA [facility].
[2019-06-10] MEDS ORDERED: OMNIPAQUE 350 MG/ML, 75ML BOTTLE ONE (20:01)
[2019-06-10] MEDS ORDERED: AMPICILLIN/SULBACTAM 3 GM in SODIUM CHLORIDE 0.9% 100 ML IV ONE (20:30)
--- NOTE | 2019-06-10 20:46 | NUR ---
ABX INFUSING. JUICE PROVIDED TO PT. PT UNDERSTANDS PLAN FOR ADMISSION.
[2019-06-10] MEDS ORDERED: SODIUM CHLORIDE FLUSH 10ML SYR IVF PRN (21:00)
[2019-06-10] MEDS ORDERED: ONDANSETRON 2MG/ML, 2ML IVPush PRN (21:30)
[2019-06-10 21:32] VITALS: BP 146/95
[2019-06-10] MEDS: HYDROmorphone 2 MG/ML, 1ML IVPush PRN (23:02)
[2019-06-10 23:56] LABS: AMPHETAMINE SCREEN, URINE Negative (Negative); BARBITURATE SCREEN, URINE Negative (Negative); BENZODIAZEPINE SCREEN, URINE Negative (Negative); CANNABINOID SCREEN, URINE Positive (Negative); COCAINE SCREEN, URINE Negative (Negative); METHADONE SCREEN, URINE Negative (Negative); OPIATE SCREEN, URINE Negative (Negative)
[2019-06-11 01:41] VITALS: BP 143/86
[2019-06-11] MEDS: AMPICILLIN/SULBACTAM 1,500 MG in SODIUM CHLORIDE 0.9% 50 ML IV SCH ×4 (02:55→21:07)
[2019-06-11] MEDS: HYDROmorphone 2 MG/ML, 1ML IVPush PRN ×4 (05:13→23:27)
[2019-06-11 05:14] LABS: BASOPHILS # (AUTO) 0.07 x10^3/uL (0-0.1); BASOPHILS % (AUTO) 1 % (0-1); EOSINOPHILS # (AUTO) 0.43 x10^3/uL (0-0.4); EOSINOPHILS % (AUTO) 4 % (1-7); LYMPHOCYTES # (AUTO) 1.78 x10^3/uL (1-3.4); LYMPHOCYTES % (AUTO) 18 % (22-44); MD NO; MEAN CORPUSCULAR HEMOGLOBIN 30.4 pg (27.5-34.5); MEAN CORPUSCULAR HGB CONC 33.4 g/dL (33.2-36.2); MEAN CORPUSCULAR VOLUME 91.2 fL (81-97); MEAN PLATELET VOLUME 7.2 fL (7.4-10.4); MONOCYTES # (AUTO) 0.99 x10^3/uL (0.2-0.8); MONOCYTES % (AUTO) 10 % (2-9); NEUTROPHILS # (AUTO) 6.73 x10^3/uL (1.8-6.8); NEUTROPHILS % (AUTO) 67 % (42-75); PLATELET COUNT 288 x10^3/uL (130-400); RED BLOOD COUNT 3.89 x10^6/uL (4.38-5.82); RED CELL DISTRIBUTION WIDTH 13.7 % (9.4-14.8)
[2019-06-11 05:24] LABS: CALCIUM 8.8 mg/dL (8.5-10.1); CHLORIDE 105 mmol/L (98-107)
[2019-06-11 05:55] LABS: ANION GAP 10 mmol/L (5-15); CREATININE 1.16 mg/dL (0.7-1.3)
[2019-06-11 07:30] VITALS: BP 150/109
[2019-06-11] MEDS: ATORVASTATIN 80 MG TABLET PO SCH (08:29)
[2019-06-11] MEDS: SPIRONOLACTONE 25 MG TABLET PO SCH (08:30)
[2019-06-11] MEDS: CARVEDILOL 12.5 MG TABLET PO SCH ×2 (08:31→21:07)
[2019-06-11] MEDS: LOSARTAN 50MG TABLET PO SCH (08:34)
[2019-06-11] MEDS ORDERED: CLOPIDOGREL 75 MG TABLET PO SCH (09:00)
--- NOTE | 2019-06-11 10:20 | NUR ---
REC: ground/thins liquids; orange sheet posted Addendum: 06/11/19 at 1020 by Radha BARNES Amended: Links added.
[2019-06-11 12:30] VITALS: BP 139/87
[2019-06-11 14:24] LABS: HCT (SEDRATE) 35.5 % (39.2-51.8)
[2019-06-11] MEDS ORDERED: HEPARIN 5,000 UNITS/ML, 1ML IV ONE (14:30)
[2019-06-11 14:32] LABS: HEMOGLOBIN A1C 6.4 % (4.2-6.3)
[2019-06-11] MEDS ORDERED: RIVAROXABAN 20 MG TABLET PO SCH (17:00)
[2019-06-11] MEDS: HEPARIN 25,000 UNITS/500ML PMX 500 ML IV PRN (17:14)
[2019-06-11 19:54] VITALS: BP 161/87
[2019-06-11] MEDS ORDERED: FLU VACC QS2019-20 36MOS UP/PF 0.5 ML IM-VACC ONE (22:30)
[2019-06-11] MEDS: ACETAMINOPHEN 325 MG TABLET PO PRN (22:50)
[2019-06-11] MEDS: HEPARIN 5,000 UNITS/ML, 1ML IV PRN (23:57)
[2019-06-12] MEDS: AMPICILLIN/SULBACTAM 1,500 MG in SODIUM CHLORIDE 0.9% 50 ML IV SCH ×4 (03:03→20:52)
[2019-06-12 03:04] VITALS: BP 129/77
[2019-06-12] MEDS: HYDROmorphone 2 MG/ML, 1ML IVPush PRN ×5 (04:20→23:06)
[2019-06-12 06:03] LABS: BASOPHILS # (AUTO) 0.05 x10^3/uL (0-0.1); BASOPHILS % (AUTO) 1 % (0-1); EOSINOPHILS # (AUTO) 0.62 x10^3/uL (0-0.4); EOSINOPHILS % (AUTO) 7 % (1-7); LYMPHOCYTES % (AUTO) 26 % (22-44); MD NO; MEAN CORPUSCULAR HEMOGLOBIN 29.8 pg (27.5-34.5); MEAN CORPUSCULAR HGB CONC 33.1 g/dL (33.2-36.2); MEAN PLATELET VOLUME 6.5 fL (7.4-10.4); MONOCYTES # (AUTO) 0.86 x10^3/uL (0.2-0.8); MONOCYTES % (AUTO) 10 % (2-9); NEUTROPHILS # (AUTO) 4.95 x10^3/uL (1.8-6.8); NEUTROPHILS % (AUTO) 56 % (42-75); PLATELET COUNT 331 x10^3/uL (130-400); RED BLOOD COUNT 4.08 x10^6/uL (4.38-5.82); RED CELL DISTRIBUTION WIDTH 13.5 % (9.4-14.8)
[2019-06-12 06:12] LABS: ANION GAP 6 mmol/L (5-15); CALCIUM 8.6 mg/dL (8.5-10.1); CHLORIDE 108 mmol/L (98-107); CREATININE 1.17 mg/dL (0.7-1.3)
[2019-06-12] MEDS: HEPARIN 5,000 UNITS/ML, 1ML IV PRN ×2 (06:34→19:28)
[2019-06-12 07:59] VITALS: BP 143/91
[2019-06-12] MEDS: LOSARTAN 50MG TABLET PO SCH (09:07)
[2019-06-12] MEDS: SPIRONOLACTONE 25 MG TABLET PO SCH (09:07)
[2019-06-12] MEDS: CARVEDILOL 12.5 MG TABLET PO SCH ×2 (09:07→20:52)
[2019-06-12] MEDS: ATORVASTATIN 80 MG TABLET PO SCH (09:07)
[2019-06-12 13:18] VITALS: BP 134/80
[2019-06-12] MEDS: INSULIN LISPRO 100 UNITS/ML, PEN SQ-INSULIN SCH ×2 (16:00→20:59)
[2019-06-12] MEDS: HEPARIN 25,000 UNITS/500ML PMX 500 ML IV PRN (18:34)
[2019-06-12 19:52] VITALS: BP 148/104
[2019-06-12 20:54] VITALS: BP 108/73
[2019-06-13 00:24] VITALS: BP 127/83
[2019-06-13] MEDS: ACETAMINOPHEN 325 MG TABLET PO PRN ×2 (00:38→11:21)
[2019-06-13] MEDS: AMPICILLIN/SULBACTAM 1,500 MG in SODIUM CHLORIDE 0.9% 50 ML IV SCH ×4 (03:16→23:36)
[2019-06-13] MEDS: HYDROmorphone 2 MG/ML, 1ML IVPush PRN ×6 (03:16→22:53)
[2019-06-13] MEDS: INSULIN LISPRO 100 UNITS/ML, PEN SQ-INSULIN SCH ×4 (07:00→20:47)
[2019-06-13 07:04] VITALS: BP 152/92
[2019-06-13] MEDS: LOSARTAN 50MG TABLET PO SCH (07:47)
[2019-06-13] MEDS: ATORVASTATIN 80 MG TABLET PO SCH (07:47)
[2019-06-13] MEDS: SPIRONOLACTONE 25 MG TABLET PO SCH (07:47)
[2019-06-13] MEDS: CARVEDILOL 12.5 MG TABLET PO SCH ×2 (09:51→20:44)
[2019-06-13 12:06] VITALS: BP 111/72
[2019-06-13 19:56] VITALS: BP 103/54
[2019-06-13] MEDS ORDERED: FENTANYL PF 250 MCG/5ML ONE (21:11)
[2019-06-13] MEDS ORDERED: MIDAZOLAM 1 MG/ML, 2ML ONE (21:11)
[2019-06-13] MEDS ORDERED: PROPOFOL 10 MG/ML, 20ML ONE (21:13)
[2019-06-13] MEDS ORDERED: METOCLOPRAMIDE 5 MG/ML, 2ML ONE (21:13)
[2019-06-13] MEDS ORDERED: ROCURONIUM 10 MG/ML,10ML ONE (21:13)
[2019-06-13] MEDS ORDERED: OXYMETAZOLINE NASAL SPRAY 0.05%, 15ML ONE (21:18)
[2019-06-13] MEDS ORDERED: ONDANSETRON 2MG/ML, 2ML ONE (21:53)
[2019-06-13] MEDS ORDERED: HYDROmorphone 1 MG/ML, 1ML VIAL ONE (22:42)
[2019-06-13] MEDS ORDERED: ONDANSETRON 2MG/ML, 2ML IV PRN (23:00)
[2019-06-13] MEDS ORDERED: PROMETHAZINE 25 MG SUPP PR PRN (23:00)
[2019-06-13 23:30] VITALS: BP 130/80
[2019-06-14] VITALS (7 sets, daily range): BP systolic 117–201; BP diastolic 70–125
[2019-06-14] MEDS: CHLORHEXIDINE GLUCONATE MOUTHWASH 0.12%, 473ML MM SCH ×2 (00:52→09:53)
[2019-06-14] MEDS: HYDROmorphone 2 MG/ML, 1ML IVPush PRN ×6 (01:32→21:58)
[2019-06-14] MEDS ORDERED: hydrALAzine 20 MG/ML, 1ML IV ONE (02:30)
[2019-06-14] MEDS ORDERED: LABETALOL 5MG/ML, 20ML IVPush ONE (04:00)
[2019-06-14] MEDS ORDERED: HYDROmorphone 1 MG/ML, 1ML INJ IV ONE (04:00)
[2019-06-14] MEDS ORDERED: HYDROmorphone 2 MG/ML, 1ML IVPush ONE (04:00)
[2019-06-14] MEDS: AMPICILLIN/SULBACTAM 1,500 MG in SODIUM CHLORIDE 0.9% 50 ML IV SCH ×4 (04:50→23:15)
[2019-06-14] MEDS: INSULIN LISPRO 100 UNITS/ML, PEN SQ-INSULIN SCH ×4 (07:00→21:38)
[2019-06-14] MEDS ORDERED: HEPARIN 5,000 UNITS/ML, 1ML IV ONE (09:00)
[2019-06-14 09:02] LABS: BASOPHILS # (AUTO) 0.03 x10^3/uL (0-0.1); BASOPHILS % (AUTO) 0 % (0-1); EOSINOPHILS # (AUTO) 0.19 x10^3/uL (0-0.4); EOSINOPHILS % (AUTO) 2 % (1-7); LYMPHOCYTES # (AUTO) 1.21 x10^3/uL (1-3.4); LYMPHOCYTES % (AUTO) 10 % (22-44); MD NO; MEAN CORPUSCULAR HEMOGLOBIN 29.6 pg (27.5-34.5); MEAN CORPUSCULAR HGB CONC 32.7 g/dL (33.2-36.2); MEAN CORPUSCULAR VOLUME 90.3 fL (81-97); MEAN PLATELET VOLUME 6.7 fL (7.4-10.4); MONOCYTES # (AUTO) 1.25 x10^3/uL (0.2-0.8); MONOCYTES % (AUTO) 10 % (2-9); NEUTROPHILS # (AUTO) 9.84 x10^3/uL (1.8-6.8); NEUTROPHILS % (AUTO) 79 % (42-75); PLATELET COUNT 334 x10^3/uL (130-400); RED BLOOD COUNT 4.18 x10^6/uL (4.38-5.82); RED CELL DISTRIBUTION WIDTH 13.6 % (9.4-14.8)
[2019-06-14] MEDS: CARVEDILOL 12.5 MG TABLET PO SCH ×2 (09:33→21:38)
[2019-06-14] MEDS: ATORVASTATIN 80 MG TABLET PO SCH (09:33)
[2019-06-14] MEDS: SPIRONOLACTONE 25 MG TABLET PO SCH (09:33)
[2019-06-14] MEDS: LOSARTAN 50MG TABLET PO SCH (09:37)
[2019-06-14] MEDS: HEPARIN 25,000 UNITS/500ML PMX 500 ML IV PRN ×2 (10:44→17:45)
[2019-06-14] MEDS: HEPARIN 5,000 UNITS/ML, 1ML IV PRN (17:43)
[2019-06-15 01:00] VITALS: BP 129/76
[2019-06-15] MEDS: CHLORHEXIDINE 15 ML UDC MM SCH ×2 (04:58→21:06)
[2019-06-15] MEDS: HYDROmorphone 2 MG/ML, 1ML IVPush PRN ×5 (05:02→21:10)
[2019-06-15] MEDS: AMPICILLIN/SULBACTAM 1,500 MG in SODIUM CHLORIDE 0.9% 50 ML IV SCH ×4 (05:03→23:10)
[2019-06-15 06:40] LABS: BASOPHILS # (AUTO) 0.03 x10^3/uL (0-0.1); BASOPHILS % (AUTO) 0 % (0-1); EOSINOPHILS # (AUTO) 0.24 x10^3/uL (0-0.4); EOSINOPHILS % (AUTO) 2 % (1-7); LYMPHOCYTES # (AUTO) 1.88 x10^3/uL (1-3.4); LYMPHOCYTES % (AUTO) 18 % (22-44); MD NO; MEAN CORPUSCULAR HEMOGLOBIN 30.4 pg (27.5-34.5); MEAN CORPUSCULAR HGB CONC 33.5 g/dL (33.2-36.2); MEAN CORPUSCULAR VOLUME 90.7 fL (81-97); MONOCYTES # (AUTO) 1.37 x10^3/uL (0.2-0.8); MONOCYTES % (AUTO) 13 % (2-9); NEUTROPHILS # (AUTO) 7.06 x10^3/uL (1.8-6.8); NEUTROPHILS % (AUTO) 67 % (42-75); PLATELET COUNT 286 x10^3/uL (130-400); RED CELL DISTRIBUTION WIDTH 13.7 % (9.4-14.8)
[2019-06-15 06:47] LABS: ANION GAP 8 mmol/L (5-15); CALCIUM 8.3 mg/dL (8.5-10.1); CHLORIDE 101 mmol/L (98-107)
[2019-06-15 08:00] VITALS: BP 119/62
[2019-06-15] MEDS: HEPARIN 5,000 UNITS/ML, 1ML IV PRN ×2 (08:20→21:53)
[2019-06-15] MEDS: LOSARTAN 50MG TABLET PO SCH (08:21)
[2019-06-15] MEDS: SPIRONOLACTONE 25 MG TABLET PO SCH (08:21)
[2019-06-15] MEDS: CARVEDILOL 12.5 MG TABLET PO SCH ×2 (08:21→21:06)
[2019-06-15] MEDS: ATORVASTATIN 80 MG TABLET PO SCH (08:21)
[2019-06-15] MEDS: INSULIN LISPRO 100 UNITS/ML, PEN SQ-INSULIN SCH ×4 (08:21→21:00)
[2019-06-15] MEDS ORDERED: TRANEXAMIC ACID 100 MG/ML, 10ML TP ONE (10:00)
[2019-06-15] MEDS: HEPARIN 25,000 UNITS/500ML PMX 500 ML IV PRN (12:30)
[2019-06-15 14:24] VITALS: BP 103/70
[2019-06-15 18:31] VITALS: BP 115/75
[2019-06-15] MEDS ORDERED: HYDROmorphone 1 MG/ML, 1ML VIAL ONE (21:08)
[2019-06-15 21:21] LABS: BASOPHILS # (AUTO) 0.03 x10^3/uL (0-0.1); BASOPHILS % (AUTO) 0 % (0-1); EOSINOPHILS % (AUTO) 4 % (1-7); LYMPHOCYTES # (AUTO) 2.16 x10^3/uL (1-3.4); LYMPHOCYTES % (AUTO) 23 % (22-44); MD NO; MEAN CORPUSCULAR HEMOGLOBIN 30.4 pg (27.5-34.5); MEAN CORPUSCULAR HGB CONC 33.3 g/dL (33.2-36.2); MEAN CORPUSCULAR VOLUME 91.3 fL (81-97); MONOCYTES # (AUTO) 1.29 x10^3/uL (0.2-0.8); MONOCYTES % (AUTO) 14 % (2-9); NEUTROPHILS # (AUTO) 5.37 x10^3/uL (1.8-6.8); NEUTROPHILS % (AUTO) 58 % (42-75); PLATELET COUNT 288 x10^3/uL (130-400); RED BLOOD COUNT 3.34 x10^6/uL (4.38-5.82); RED CELL DISTRIBUTION WIDTH 13.9 % (9.4-14.8)
[2019-06-16 00:22] VITALS: BP 124/76
[2019-06-16] MEDS: HYDROmorphone 2 MG/ML, 1ML IVPush PRN ×3 (00:29→21:45)
[2019-06-16] MEDS ORDERED: HYDROmorphone 1 MG/ML, 1ML VIAL ONE (04:39)
[2019-06-16] MEDS: AMPICILLIN/SULBACTAM 1,500 MG in SODIUM CHLORIDE 0.9% 50 ML IV SCH ×4 (04:43→23:09)
[2019-06-16 04:50] LABS: BASOPHILS # (AUTO) 0.03 x10^3/uL (0-0.1); BASOPHILS % (AUTO) 0 % (0-1); EOSINOPHILS # (AUTO) 0.47 x10^3/uL (0-0.4); EOSINOPHILS % (AUTO) 6 % (1-7); LYMPHOCYTES # (AUTO) 2.34 x10^3/uL (1-3.4); LYMPHOCYTES % (AUTO) 27 % (22-44); MD NO; MEAN CORPUSCULAR HEMOGLOBIN 30.5 pg (27.5-34.5); MEAN CORPUSCULAR HGB CONC 33.1 g/dL (33.2-36.2); MEAN CORPUSCULAR VOLUME 92.3 fL (81-97); MONOCYTES # (AUTO) 1.13 x10^3/uL (0.2-0.8); MONOCYTES % (AUTO) 13 % (2-9); NEUTROPHILS # (AUTO) 4.61 x10^3/uL (1.8-6.8); NEUTROPHILS % (AUTO) 54 % (42-75); PLATELET COUNT 279 x10^3/uL (130-400); RED CELL DISTRIBUTION WIDTH 13.9 % (9.4-14.8)
[2019-06-16 05:01] LABS: ANION GAP 6 mmol/L (5-15); CALCIUM 8.4 mg/dL (8.5-10.1); CHLORIDE 103 mmol/L (98-107)
[2019-06-16 05:03] LABS: CREATININE 1.05 mg/dL (0.7-1.3)
[2019-06-16] MEDS: HEPARIN 5,000 UNITS/ML, 1ML IV PRN ×2 (05:48→21:30)
[2019-06-16 07:00] VITALS: BP 117/71
[2019-06-16] MEDS: INSULIN LISPRO 100 UNITS/ML, PEN SQ-INSULIN SCH ×4 (07:25→20:34)
[2019-06-16] MEDS: CARVEDILOL 12.5 MG TABLET PO SCH ×2 (08:27→20:34)
[2019-06-16] MEDS: SPIRONOLACTONE 25 MG TABLET PO SCH (08:27)
[2019-06-16] MEDS: ATORVASTATIN 80 MG TABLET PO SCH (08:27)
[2019-06-16] MEDS: LOSARTAN 50MG TABLET PO SCH (08:27)
[2019-06-16] MEDS: HYDROmorphone 2MG TABLET PO PRN ×4 (08:39→20:34)
[2019-06-16] MEDS: CHLORHEXIDINE 15 ML UDC MM SCH ×2 (08:39→20:33)
[2019-06-16] MEDS: HEPARIN 25,000 UNITS/500ML PMX 500 ML IV PRN (13:18)
[2019-06-16 13:23] VITALS: BP 103/66
[2019-06-16] MEDS ORDERED: TRANEXAMIC ACID 100 MG/ML, 10ML TP ONE (17:00)
[2019-06-16 19:34] VITALS: BP 146/87
[2019-06-17] MEDS ORDERED: HYDROmorphone 1 MG/ML, 1ML VIAL ONE (03:26)
[2019-06-17] MEDS: HYDROmorphone 2 MG/ML, 1ML IVPush PRN (03:31)
[2019-06-17 03:32] VITALS: BP 142/87
[2019-06-17] MEDS: AMPICILLIN/SULBACTAM 1,500 MG in SODIUM CHLORIDE 0.9% 50 ML IV SCH ×2 (05:12→11:41)
[2019-06-17] MEDS: INSULIN LISPRO 100 UNITS/ML, PEN SQ-INSULIN SCH ×4 (07:00→21:18)
[2019-06-17 07:21] LABS: BASOPHILS # (AUTO) 0.04 x10^3/uL (0-0.1); BASOPHILS % (AUTO) 1 % (0-1); EOSINOPHILS # (AUTO) 0.39 x10^3/uL (0-0.4); EOSINOPHILS % (AUTO) 4 % (1-7); LYMPHOCYTES # (AUTO) 1.83 x10^3/uL (1-3.4); LYMPHOCYTES % (AUTO) 21 % (22-44); MD NO; MEAN CORPUSCULAR HEMOGLOBIN 29.7 pg (27.5-34.5); MEAN CORPUSCULAR HGB CONC 32.8 g/dL (33.2-36.2); MEAN CORPUSCULAR VOLUME 90.8 fL (81-97); MEAN PLATELET VOLUME 7.2 fL (7.4-10.4); MONOCYTES # (AUTO) 0.97 x10^3/uL (0.2-0.8); MONOCYTES % (AUTO) 11 % (2-9); NEUTROPHILS # (AUTO) 5.54 x10^3/uL (1.8-6.8); NEUTROPHILS % (AUTO) 63 % (42-75); PLATELET COUNT 332 x10^3/uL (130-400); RED BLOOD COUNT 3.25 x10^6/uL (4.38-5.82); RED CELL DISTRIBUTION WIDTH 13.4 % (9.4-14.8)
[2019-06-17] MEDS: ATORVASTATIN 80 MG TABLET PO SCH (07:43)
[2019-06-17] MEDS: SPIRONOLACTONE 25 MG TABLET PO SCH (07:44)
[2019-06-17] MEDS: HYDROmorphone 2MG TABLET PO PRN ×4 (07:44→20:49)
[2019-06-17] MEDS: LOSARTAN 50MG TABLET PO SCH (07:44)
[2019-06-17] MEDS: CARVEDILOL 12.5 MG TABLET PO SCH ×2 (07:44→21:16)
[2019-06-17] MEDS: CHLORHEXIDINE 15 ML UDC MM SCH ×2 (07:44→21:16)
[2019-06-17 08:09] VITALS: BP 122/75
[2019-06-17] MEDS: HEPARIN 25,000 UNITS/500ML PMX 500 ML IV PRN (12:12)
[2019-06-17 17:26] VITALS: BP 117/76
[2019-06-17 18:03] LABS: BASOPHILS # (AUTO) 0.03 x10^3/uL (0-0.1); BASOPHILS % (AUTO) 0 % (0-1); EOSINOPHILS # (AUTO) 0.43 x10^3/uL (0-0.4); EOSINOPHILS % (AUTO) 5 % (1-7); LYMPHOCYTES # (AUTO) 1.82 x10^3/uL (1-3.4); LYMPHOCYTES % (AUTO) 20 % (22-44); MD NO; MEAN CORPUSCULAR HEMOGLOBIN 29.9 pg (27.5-34.5); MEAN CORPUSCULAR HGB CONC 32.8 g/dL (33.2-36.2); MEAN CORPUSCULAR VOLUME 91.3 fL (81-97); MEAN PLATELET VOLUME 6.6 fL (7.4-10.4); MONOCYTES # (AUTO) 0.73 x10^3/uL (0.2-0.8); MONOCYTES % (AUTO) 8 % (2-9); NEUTROPHILS # (AUTO) 5.97 x10^3/uL (1.8-6.8); NEUTROPHILS % (AUTO) 67 % (42-75); PLATELET COUNT 395 x10^3/uL (130-400); RED BLOOD COUNT 3.35 x10^6/uL (4.38-5.82); RED CELL DISTRIBUTION WIDTH 13.6 % (9.4-14.8)
[2019-06-17] MEDS: AMPICILLIN/SULBACTAM 1,500 MG in SODIUM CHLORIDE 0.9% 100 ML IV SCH (18:07)
[2019-06-17 19:21] VITALS: BP 119/70
[2019-06-18] MEDS: AMPICILLIN/SULBACTAM 1,500 MG in SODIUM CHLORIDE 0.9% 100 ML IV SCH ×2 (00:15→06:09)
[2019-06-18] MEDS: HYDROmorphone 2 MG/ML, 1ML IVPush PRN ×2 (00:48→04:33)
[2019-06-18 01:07] VITALS: BP 119/81
[2019-06-18 05:02] LABS: BASOPHILS # (AUTO) 0.04 x10^3/uL (0-0.1); BASOPHILS % (AUTO) 1 % (0-1); EOSINOPHILS % (AUTO) 6 % (1-7); LYMPHOCYTES # (AUTO) 2.49 x10^3/uL (1-3.4); LYMPHOCYTES % (AUTO) 28 % (22-44); MD NO; MEAN CORPUSCULAR HEMOGLOBIN 30.5 pg (27.5-34.5); MEAN CORPUSCULAR HGB CONC 33.6 g/dL (33.2-36.2); MEAN CORPUSCULAR VOLUME 90.9 fL (81-97); MEAN PLATELET VOLUME 6.9 fL (7.4-10.4); MONOCYTES # (AUTO) 1.03 x10^3/uL (0.2-0.8); MONOCYTES % (AUTO) 12 % (2-9); NEUTROPHILS # (AUTO) 4.69 x10^3/uL (1.8-6.8); NEUTROPHILS % (AUTO) 54 % (42-75); PLATELET COUNT 376 x10^3/uL (130-400); RED BLOOD COUNT 3.01 x10^6/uL (4.38-5.82); RED CELL DISTRIBUTION WIDTH 13.6 % (9.4-14.8)
[2019-06-18 06:52] VITALS: BP 112/74
[2019-06-18] MEDS: INSULIN LISPRO 100 UNITS/ML, PEN SQ-INSULIN SCH ×4 (07:00→20:08)
[2019-06-18] MEDS: ATORVASTATIN 80 MG TABLET PO SCH (09:32)
[2019-06-18] MEDS: CHLORHEXIDINE 15 ML UDC MM SCH ×2 (09:32→20:09)
[2019-06-18] MEDS: CARVEDILOL 12.5 MG TABLET PO SCH ×2 (09:32→20:09)
[2019-06-18] MEDS: LOSARTAN 50MG TABLET PO SCH (09:32)
[2019-06-18] MEDS: SPIRONOLACTONE 25 MG TABLET PO SCH (09:32)
[2019-06-18] MEDS: HYDROmorphone 2MG TABLET PO PRN ×3 (11:41→20:10)
[2019-06-18] MEDS: AMPICILLIN/SULBACTAM 1,500 MG in SODIUM CHLORIDE 0.9% 50 ML IV SCH ×2 (11:44→18:04)
[2019-06-18 13:06] VITALS: BP 104/70
[2019-06-18 19:06] VITALS: BP 105/63
[2019-06-19] MEDS: AMPICILLIN/SULBACTAM 1,500 MG in SODIUM CHLORIDE 0.9% 50 ML IV SCH ×4 (00:01→18:04)
[2019-06-19] MEDS: HYDROmorphone 2MG TABLET PO PRN ×4 (02:03→20:07)
[2019-06-19 02:09] VITALS: BP 103/64
[2019-06-19 04:51] LABS: BASOPHILS # (AUTO) 0.03 x10^3/uL (0-0.1); BASOPHILS % (AUTO) 0 % (0-1); EOSINOPHILS # (AUTO) 0.48 x10^3/uL (0-0.4); EOSINOPHILS % (AUTO) 5 % (1-7); LYMPHOCYTES # (AUTO) 1.77 x10^3/uL (1-3.4); LYMPHOCYTES % (AUTO) 18 % (22-44); MD NO; MEAN CORPUSCULAR HEMOGLOBIN 30.4 pg (27.5-34.5); MEAN CORPUSCULAR HGB CONC 33.2 g/dL (33.2-36.2); MEAN CORPUSCULAR VOLUME 91.5 fL (81-97); MONOCYTES # (AUTO) 0.91 x10^3/uL (0.2-0.8); MONOCYTES % (AUTO) 9 % (2-9); NEUTROPHILS # (AUTO) 6.82 x10^3/uL (1.8-6.8); NEUTROPHILS % (AUTO) 68 % (42-75); PLATELET COUNT 345 x10^3/uL (130-400); RED BLOOD COUNT 2.61 x10^6/uL (4.38-5.82); RED CELL DISTRIBUTION WIDTH 13.4 % (9.4-14.8)
[2019-06-19] MEDS: INSULIN LISPRO 100 UNITS/ML, PEN SQ-INSULIN SCH ×4 (07:00→20:10)
[2019-06-19 08:54] VITALS: BP 116/74
[2019-06-19] MEDS: CHLORHEXIDINE 15 ML UDC MM SCH ×2 (08:57→20:07)
[2019-06-19] MEDS: LOSARTAN 50MG TABLET PO SCH (08:57)
[2019-06-19] MEDS: ATORVASTATIN 80 MG TABLET PO SCH (08:57)
[2019-06-19] MEDS: CARVEDILOL 12.5 MG TABLET PO SCH ×2 (08:57→20:07)
[2019-06-19] MEDS: SPIRONOLACTONE 25 MG TABLET PO SCH (08:57)
[2019-06-19 13:19] VITALS: BP 97/62
[2019-06-19] MEDS: HEPARIN 25,000 UNITS/500ML PMX 500 ML IV PRN (14:31)
[2019-06-19] MEDS: HEPARIN 5,000 UNITS/ML, 1ML IV PRN ×2 (14:33→21:13)
[2019-06-19] MEDS ORDERED: HEPARIN 5,000 UNITS/ML, 1ML IV ONE (15:30)
[2019-06-19 19:49] VITALS: BP 119/70
[2019-06-20] MEDS: AMPICILLIN/SULBACTAM 1,500 MG in SODIUM CHLORIDE 0.9% 50 ML IV SCH ×4 (00:02→17:48)
[2019-06-20] MEDS: HYDROmorphone 2MG TABLET PO PRN ×6 (00:06→21:43)
[2019-06-20 01:44] VITALS: BP 117/72
[2019-06-20 03:32] LABS: ANION GAP 5 mmol/L (5-15); CALCIUM 7.8 mg/dL (8.5-10.1); CHLORIDE 108 mmol/L (98-107); CREATININE 0.97 mg/dL (0.7-1.3)
[2019-06-20 03:51] LABS: MEAN CORPUSCULAR HEMOGLOBIN 29.7 pg (27.5-34.5); MEAN CORPUSCULAR HGB CONC 32.1 g/dL (33.2-36.2); MEAN CORPUSCULAR VOLUME 92.5 fL (81-97); MEAN PLATELET VOLUME 6.6 fL (7.4-10.4); PLATELET COUNT 363 x10^3/uL (130-400); RED BLOOD COUNT 2.34 x10^6/uL (4.38-5.82); RED CELL DISTRIBUTION WIDTH 13.5 % (9.4-14.8)
[2019-06-20] MEDS: HEPARIN 5,000 UNITS/ML, 1ML IV PRN (03:52)
[2019-06-20 04:26] LABS: BASOPHILS # (AUTO) 0.05 x10^3/uL (0-0.1); BASOPHILS % (AUTO) 1 % (0-1); EOSINOPHILS # (AUTO) 0.55 x10^3/uL (0-0.4); EOSINOPHILS % (AUTO) 6 % (1-7); LYMPHOCYTES # (AUTO) 2.91 x10^3/uL (1-3.4); LYMPHOCYTES % (AUTO) 31 % (22-44); MD SCAN; MONOCYTES # (AUTO) 0.78 x10^3/uL (0.2-0.8); MONOCYTES % (AUTO) 8 % (2-9); NEUTROPHILS # (AUTO) 5.08 x10^3/uL (1.8-6.8); NEUTROPHILS % (AUTO) 54 % (42-75)
[2019-06-20 07:00] VITALS: BP 124/62
[2019-06-20] MEDS: INSULIN LISPRO 100 UNITS/ML, PEN SQ-INSULIN SCH ×4 (07:00→21:00)
[2019-06-20] MEDS: ATORVASTATIN 80 MG TABLET PO SCH (09:01)
[2019-06-20] MEDS: SPIRONOLACTONE 25 MG TABLET PO SCH (09:01)
[2019-06-20] MEDS: CHLORHEXIDINE 15 ML UDC MM SCH ×2 (09:01→21:42)
[2019-06-20] MEDS: LOSARTAN 50MG TABLET PO SCH (09:01)
[2019-06-20] MEDS: CARVEDILOL 12.5 MG TABLET PO SCH ×2 (09:02→21:43)
[2019-06-20 09:03] VITALS: BP 126/75
[2019-06-20] MEDS: HEPARIN 25,000 UNITS/500ML PMX 500 ML IV PRN (10:37)
[2019-06-20 15:38] VITALS: BP 96/57
[2019-06-20 19:04] VITALS: BP 119/70
[2019-06-21] MEDS: AMPICILLIN/SULBACTAM 1,500 MG in SODIUM CHLORIDE 0.9% 50 ML IV SCH ×4 (00:15→19:25)
[2019-06-21] MEDS: HYDROmorphone 2MG TABLET PO PRN ×5 (01:48→21:08)
[2019-06-21 02:38] VITALS: BP 114/56
[2019-06-21 05:32] LABS: ANION GAP 6 mmol/L (5-15); CALCIUM 8.1 mg/dL (8.5-10.1); CHLORIDE 105 mmol/L (98-107)
[2019-06-21 05:57] LABS: MEAN CORPUSCULAR HEMOGLOBIN 29.9 pg (27.5-34.5); MEAN CORPUSCULAR HGB CONC 33.1 g/dL (33.2-36.2); MEAN CORPUSCULAR VOLUME 90.4 fL (81-97); MEAN PLATELET VOLUME 6.7 fL (7.4-10.4); PLATELET COUNT 427 x10^3/uL (130-400); RED CELL DISTRIBUTION WIDTH 13.9 % (9.4-14.8)
[2019-06-21] MEDS: HEPARIN 5,000 UNITS/ML, 1ML IV PRN (06:28)
[2019-06-21 06:39] LABS: BASOPHILS # (AUTO) 0.03 x10^3/uL (0-0.1); BASOPHILS % (AUTO) 0 % (0-1); EOSINOPHILS # (AUTO) 0.58 x10^3/uL (0-0.4); EOSINOPHILS % (AUTO) 7 % (1-7); LYMPHOCYTES # (AUTO) 1.89 x10^3/uL (1-3.4); LYMPHOCYTES % (AUTO) 22 % (22-44); MD SCAN; MONOCYTES # (AUTO) 0.69 x10^3/uL (0.2-0.8); MONOCYTES % (AUTO) 8 % (2-9); NEUTROPHILS # (AUTO) 5.32 x10^3/uL (1.8-6.8); NEUTROPHILS % (AUTO) 63 % (42-75)
[2019-06-21 06:56] VITALS: BP 117/68
[2019-06-21] MEDS: INSULIN LISPRO 100 UNITS/ML, PEN SQ-INSULIN SCH ×4 (07:00→20:11)
[2019-06-21] MEDS: CHLORHEXIDINE 15 ML UDC MM SCH ×2 (08:32→20:10)
[2019-06-21] MEDS: LOSARTAN 50MG TABLET PO SCH (08:33)
[2019-06-21] MEDS: CARVEDILOL 12.5 MG TABLET PO SCH ×2 (08:33→20:10)
[2019-06-21] MEDS: SPIRONOLACTONE 25 MG TABLET PO SCH (08:33)
[2019-06-21] MEDS: ATORVASTATIN 80 MG TABLET PO SCH (08:33)
[2019-06-21] MEDS: HEPARIN 25,000 UNITS/500ML PMX 500 ML IV PRN (10:38)
[2019-06-21 12:07] VITALS: BP 119/69
[2019-06-21 19:19] VITALS: BP 118/74
[2019-06-22 00:06] VITALS: BP 107/68
[2019-06-22] MEDS: HYDROmorphone 2MG TABLET PO PRN ×4 (00:08→13:41)
[2019-06-22] MEDS: AMPICILLIN/SULBACTAM 1,500 MG in SODIUM CHLORIDE 0.9% 50 ML IV SCH ×3 (01:11→13:43)
[2019-06-22 05:36] LABS: BASOPHILS # (AUTO) 0.04 x10^3/uL (0-0.1); BASOPHILS % (AUTO) 0 % (0-1); EOSINOPHILS # (AUTO) 0.77 x10^3/uL (0-0.4); EOSINOPHILS % (AUTO) 7 % (1-7); LYMPHOCYTES # (AUTO) 2.24 x10^3/uL (1-3.4); LYMPHOCYTES % (AUTO) 21 % (22-44); MD NO; MEAN CORPUSCULAR HGB CONC 32.5 g/dL (33.2-36.2); MEAN CORPUSCULAR VOLUME 92.3 fL (81-97); MEAN PLATELET VOLUME 6.8 fL (7.4-10.4); MONOCYTES # (AUTO) 1.04 x10^3/uL (0.2-0.8); MONOCYTES % (AUTO) 10 % (2-9); NEUTROPHILS # (AUTO) 6.71 x10^3/uL (1.8-6.8); NEUTROPHILS % (AUTO) 62 % (42-75); PLATELET COUNT 497 x10^3/uL (130-400); RED BLOOD COUNT 2.59 x10^6/uL (4.38-5.82); RED CELL DISTRIBUTION WIDTH 14.4 % (9.4-14.8)
[2019-06-22 05:43] LABS: ANION GAP 6 mmol/L (5-15); CALCIUM 8.4 mg/dL (8.5-10.1); CHLORIDE 106 mmol/L (98-107)
[2019-06-22 05:44] LABS: CREATININE 1.01 mg/dL (0.7-1.3)
[2019-06-22] MEDS: HEPARIN 5,000 UNITS/ML, 1ML IV PRN (05:53)
[2019-06-22 07:16] VITALS: BP 116/77
[2019-06-22] MEDS: LOSARTAN 50MG TABLET PO SCH (08:08)
[2019-06-22] MEDS: CHLORHEXIDINE 15 ML UDC MM SCH ×2 (08:08→20:47)
[2019-06-22] MEDS: ATORVASTATIN 80 MG TABLET PO SCH (08:09)
[2019-06-22] MEDS: SPIRONOLACTONE 25 MG TABLET PO SCH (08:09)
[2019-06-22] MEDS: CARVEDILOL 12.5 MG TABLET PO SCH ×2 (08:09→20:47)
[2019-06-22] MEDS: HEPARIN 25,000 UNITS/500ML PMX 500 ML IV PRN (08:13)
[2019-06-22] MEDS: INSULIN LISPRO 100 UNITS/ML, PEN SQ-INSULIN SCH ×4 (08:14→20:48)
[2019-06-22 13:06] VITALS: BP 96/59
[2019-06-22] MEDS ORDERED: OXYcodone/APAP 5/325MG TABLET PO PRN (14:30)
[2019-06-22] MEDS ORDERED: PLEASE ENTER ALLERGIES MC SCH (14:30)
[2019-06-22] MEDS ORDERED: HEPARIN 25,000 UNITS/500ML PMX 500 ML IV PRN (15:00)
[2019-06-22 18:27] VITALS: BP 122/75
[2019-06-22] MEDS ORDERED: RIVAROXABAN 20 MG TABLET PO SCH (20:00)
[2019-06-22] MEDS: AMOXICILLIN/CLAV 875-125MG TABLET PO SCH (20:47)
[2019-06-23 01:09] LABS: BASOPHILS # (AUTO) 0.05 x10^3/uL (0-0.1); BASOPHILS % (AUTO) 1 % (0-1); EOSINOPHILS # (AUTO) 0.68 x10^3/uL (0-0.4); EOSINOPHILS % (AUTO) 6 % (1-7); LYMPHOCYTES # (AUTO) 2.46 x10^3/uL (1-3.4); LYMPHOCYTES % (AUTO) 22 % (22-44); MD NO; MEAN CORPUSCULAR HEMOGLOBIN 30.2 pg (27.5-34.5); MEAN CORPUSCULAR HGB CONC 32.6 g/dL (33.2-36.2); MEAN CORPUSCULAR VOLUME 92.6 fL (81-97); MEAN PLATELET VOLUME 6.7 fL (7.4-10.4); MONOCYTES # (AUTO) 1.01 x10^3/uL (0.2-0.8); MONOCYTES % (AUTO) 9 % (2-9); NEUTROPHILS # (AUTO) 6.98 x10^3/uL (1.8-6.8); NEUTROPHILS % (AUTO) 62 % (42-75); PLATELET COUNT 561 x10^3/uL (130-400); RED BLOOD COUNT 2.79 x10^6/uL (4.38-5.82); RED CELL DISTRIBUTION WIDTH 14.5 % (9.4-14.8)
[2019-06-23 01:13] LABS: ANION GAP 5 mmol/L (5-15); CALCIUM 8.3 mg/dL (8.5-10.1); CHLORIDE 107 mmol/L (98-107); CREATININE 1.06 mg/dL (0.7-1.3)
[2019-06-23 02:09] VITALS: BP 110/68
[2019-06-23 06:58] VITALS: BP 99/60
[2019-06-23] MEDS: INSULIN LISPRO 100 UNITS/ML, PEN SQ-INSULIN SCH ×2 (07:40→10:51)
[2019-06-23 09:53] VITALS: BP 119/75
[2019-06-23] MEDS: LOSARTAN 50MG TABLET PO SCH (09:55)
[2019-06-23] MEDS: CARVEDILOL 12.5 MG TABLET PO SCH (09:55)
[2019-06-23] MEDS: SPIRONOLACTONE 25 MG TABLET PO SCH (09:55)
[2019-06-23] MEDS: CHLORHEXIDINE 15 ML UDC MM SCH (09:55)
[2019-06-23] MEDS: AMOXICILLIN/CLAV 875-125MG TABLET PO SCH (09:55)
[2019-06-23] MEDS: ATORVASTATIN 80 MG TABLET PO SCH (09:55)
[2019-06-23 12:48] VITALS: BP 109/72
[2019-06-23] MEDS ORDERED: AMOX1TAB64 PO (13:15)
== END 2019-06-23 15:28 | disposition home or self-care (01) | DRG 131 ==
LOC: ED 20:26 → EDIP 20:31 → ED 20:41 → 3N 21:30 → 4NE 06-14 17:21 → DCLOUNGE 06-23 15:15
PROVIDERS: ADMIT Internal Medicine; ATTEND Internal Medicine
PROC: 0NQV0ZZ Repair Left Mandible, Open Approach (ICD-10-PCS; 2019-06-13)
PROC: 0NQT0ZZ Repair Right Mandible, Open Approach (ICD-10-PCS; 2019-06-13)
PROC: 0CDWXZ1 Extraction of Upper Tooth, Multiple, External Approach (ICD-10-PCS; 2019-06-13)
PROC: 0CDXXZ1 Extraction of Lower Tooth, Multiple, External Approach (ICD-10-PCS; principal; 2019-06-13 18:00)
DX: K02.9 Dental caries, unspecified (principal); N17.0 Acute kidney failure with tubular necrosis; D62 Acute posthemorrhagic anemia; I13.0 Hypertensive heart and chronic kidney disease with heart failure and stage 1 through stage 4 chronic kidney disease, or unspecified chronic kidney disease; L02.01 Cutaneous abscess of face; L03.211 Cellulitis of face; E11.22 Type 2 diabetes mellitus with diabetic chronic kidney disease; E78.5 Hyperlipidemia, unspecified; F17.200 Nicotine dependence, unspecified, uncomplicated; F19.90 Other psychoactive substance use, unspecified, uncomplicated; I25.10 Atherosclerotic heart disease of native coronary artery without angina pectoris; I25.2 Old myocardial infarction; I25.5 Ischemic cardiomyopathy; I50.9 Heart failure, unspecified; I51.3 Intracardiac thrombosis, not elsewhere classified; K04.7 Periapical abscess without sinus; L03.032 Cellulitis of left toe; M27.2 Inflammatory conditions of jaws; N18.2 Chronic kidney disease, stage 2 (mild); Z59.0 Homelessness; Z79.01 Long term (current) use of anticoagulants; Z79.02 Long term (current) use of antithrombotics/antiplatelets; Z79.82 Long term (current) use of aspirin; Z95.5 Presence of coronary angioplasty implant and graft; Z88.5 Allergy status to narcotic agent; Z88.8 Allergy status to other drugs, medicaments and biological substances
CPT/HCPCS: 36415; 70100; 70487; 80048; 80307; 82040; 82962; 83036; 85014; 85018; 85025; 85520; 85651; 85730; 86140; 90686; 93308; 93321; 93325; 99285; G0378; J0295; J1170; J1644; J2250; J2405; J2704; J3010; Q9967; J0360; J2765

== ENCOUNTER 2019-06-27 08:51 | Emergency (ER) | payer MEDICAID ==
[~2019-06-27] VITALS: Ht 165.1 cm; Wt 74.4 kg
[2019-06-27 08:54] VITALS: BP 113/68
--- NOTE | 2019-06-27 09:04 | NUR ---
BREAK RN: CONTACT WITH PT, 33 YR OLD MALE HERE WITH C/O "I GOT MY TEETH PULLED. I WAS ADMITTED 06/10/19 AND RELEASED 06/23/19, THEY GAVE ME AN EXTRA DAY OF ABX. I HAVE FINISHED THE COURSE. I KNOW THE INFECTION IS STILL THERE. I HAVE A HEART CONDITION AND I'M ON BLOOD THINNERS. THERE IS LIKE A BUBBLE THAT MOVES FROM SIDE TO SIDE. I KNOW ITS NOT JUST INFLAMMATION"
--- NOTE | 2019-06-27 09:18 | NUR ---
REPORT TO VINAY FULLER
--- NOTE | 2019-06-27 09:26 | NUR ---
RECEIVED REPORT FROM JONNY HUNTLEY. PT RESTING ON SWATI. YOSHI. WARM BLANKET PROVIDED.
--- NOTE | 2019-06-27 09:39 | NUR ---
ERP DR. ALMANZAR AT BEDSIDE.
== END 2019-06-27 10:15 | disposition home or self-care (01) ==
LOC: ED 10:13
DX: L03.211 Cellulitis of face (principal); I25.10 Atherosclerotic heart disease of native coronary artery without angina pectoris; I25.2 Old myocardial infarction; I10 Essential (primary) hypertension; E11.9 Type 2 diabetes mellitus without complications
CPT/HCPCS: 99283

== ENCOUNTER 2019-07-04 13:03 | Emergency (ER) | payer MEDICAID ==
[~2019-07-04] VITALS: Ht 165.1 cm; Wt 73.5 kg
--- NOTE | 2019-07-04 14:01 | NUR ---
PT WITH C/O SOB X3 DAYS, UNABLE TO WALK SHORT DISTANCES. PT DENIES CP. ERMD IN TO EVAL PT, ORDERS RECIEVED, PT TO GO TO CT. PIV INITIATED. PT TO BP, CARD MONITOR, CONT PULSE OX
[2019-07-04 14:17] LABS: BASOPHILS # (AUTO) 0.03 x10^3/uL (0-0.1); BASOPHILS % (AUTO) 0 % (0-1); EOSINOPHILS % (AUTO) 7 % (1-7); LYMPHOCYTES % (AUTO) 17 % (22-44); MD NO; MEAN CORPUSCULAR HEMOGLOBIN 28.4 pg (27.5-34.5); MEAN CORPUSCULAR HGB CONC 31.9 g/dL (33.2-36.2); MEAN PLATELET VOLUME 6.7 fL (7.4-10.4); MONOCYTES # (AUTO) 0.47 x10^3/uL (0.2-0.8); MONOCYTES % (AUTO) 6 % (2-9); NEUTROPHILS # (AUTO) 5.25 x10^3/uL (1.8-6.8); NEUTROPHILS % (AUTO) 70 % (42-75); PLATELET COUNT 496 x10^3/uL (130-400); RED BLOOD COUNT 3.37 x10^6/uL (4.38-5.82); RED CELL DISTRIBUTION WIDTH 14.9 % (9.4-14.8)
[2019-07-04 14:28] LABS: ALANINE AMINOTRANSFERASE 28 U/L (12-78); ALBUMIN 3.3 g/dL (3.4-5.0); ANION GAP 3 mmol/L (5-15); CALCIUM 8.3 mg/dL (8.5-10.1); CHLORIDE 112 mmol/L (98-107); CREATININE 1.21 mg/dL (0.7-1.3)
[2019-07-04 14:33] LABS: ALKALINE PHOSPHATASE 74 U/L (45-117); BILIRUBIN,TOTAL 0.2 mg/dL (0.2-1.0); TOTAL PROTEIN 7.4 g/dL (6.4-8.2); TROPONIN I < 0.015 ng/mL (0.000-0.045)
--- NOTE | 2019-07-04 14:56 | NUR ---
PT RESTING ON JIMMY LONGORIA NOTED, NO NEEDS AT THIS TIME, PT AWAITING CTA
[2019-07-04] MEDS ORDERED: FUROSEMIDE 40 MG/4 ML IV ONE (15:30)
[2019-07-04] MEDS ORDERED: FUROSEMIDE 20 MG/2 ML ONE (15:32)
--- NOTE | 2019-07-04 15:37 | NUR ---
PT BACK FROM CT, MEDICATED PER OCT. PLACED FOR RECHECK AT THIS TIME
[2019-07-04] MEDS ORDERED: OMNIPAQUE 350 MG/ML, 100ML BOTTLE ONE (16:14)
[2019-07-04 16:50] VITALS: BP 126/82
--- NOTE | 2019-07-04 18:20 | NUR ---
Patient/Caregiver given discharge instructions and they have confirmed that they understand the instructions. Patient ambulatory with steady gait.
== END 2019-07-04 18:21 | disposition home or self-care (01) ==
LOC: ED 15:16
DX: R60.0 Localized edema (principal); I11.0 Hypertensive heart disease with heart failure; I50.9 Heart failure, unspecified; I25.10 Atherosclerotic heart disease of native coronary artery without angina pectoris; I25.2 Old myocardial infarction; E11.9 Type 2 diabetes mellitus without complications
CPT/HCPCS: 36415; 71045; 71275; 80053; 83880; 84484; 85025; 85379; 93005; 93970; 96374; 99284; J1940; Q9967

== ENCOUNTER 2019-07-29 13:09 | Emergency (ER) | payer MEDICAID ==
[~2019-07-29] VITALS: Ht 165.1 cm; Wt 80.5 kg
[2019-07-29 13:47] VITALS: BP 145/87
--- NOTE | 2019-07-29 13:54 | NUR ---
THIS IS A 33 YO M BIB [facility]. FOUND DOWN IN [facility]. POSITIVE FOR LEFT SIDE PARYLSIS [facility] ARRIVAL. FSBS 75. PATIENT TRANSFERED DIRECTLY TO CT. EVALUATED BY PROVIDER IN RADIOLOGY. PIV STARTED IN LEFT ARM. NEUROLIGIST ORDERED TPA TO BE ADMINISTERED IN RADIOLOGY. LOADING DOSE OF 7.2 MG GIVEN AT 1336. GTT STARTED AT 1342. D/C TPA AT 1345 DUE TO CURRENT RX FOR XARELTO (PATIENT STATES LAST TAKEN LAST NIGHT). PATIENT RECEIVED 9.85 MG TOTAL. PATIENT RESTING ON GURNEY WITH SIDE RAILS UP X2. VS STABLE. A&OX3. ABLE TO FOLLOW COMMANDS. AWAITING TRANSFER ORDERS.
[2019-07-29 14:05] LABS: BASOPHILS # (AUTO) 0.05 x10^3/uL (0-0.1); BASOPHILS % (AUTO) 1 % (0-1); EOSINOPHILS # (AUTO) 0.63 x10^3/uL (0-0.4); EOSINOPHILS % (AUTO) 9 % (1-7); LYMPHOCYTES # (AUTO) 1.65 x10^3/uL (1-3.4); LYMPHOCYTES % (AUTO) 24 % (22-44); MD NO; MEAN CORPUSCULAR HEMOGLOBIN 25.2 pg (27.5-34.5); MEAN CORPUSCULAR VOLUME 81.2 fL (81-97); MEAN PLATELET VOLUME 6.8 fL (7.4-10.4); MONOCYTES # (AUTO) 0.45 x10^3/uL (0.2-0.8); MONOCYTES % (AUTO) 6 % (2-9); NEUTROPHILS # (AUTO) 4.26 x10^3/uL (1.8-6.8); NEUTROPHILS % (AUTO) 61 % (42-75); PLATELET COUNT 485 x10^3/uL (130-400); RED BLOOD COUNT 3.77 x10^6/uL (4.38-5.82)
--- NOTE | 2019-07-29 14:08 | NUR ---
DR. BENNETT CALLED AND GAVE THE ORDER TO STOP TPA. INFORMED DR. BENNETT THAT TPA WAS ALREADY STOPPED AT THE BEDSIDE ORDER OF DR. KEMP, PATIENT STATES THAT HE TOOK XARELTO YESTERDAY. INFORMED DR. BENNETT THAT PATIENT RECEIVED A TOTAL OF 9.85MG OF TPA AT THE TIME INFUSION WAS STOPPED.
--- NOTE | 2019-07-29 14:20 | NUR ---
PATIENT TRANSFERED TO [facility] ED.
--- NOTE | 2019-07-29 14:31 | NUR ---
REPORT GIVEN TO JANICE ROE SALES PROGRAM COORDINATOR.
[2019-07-29] MEDS ORDERED: ALTEPLASE 1 MG/ML, 100ML ONE (14:37)
[2019-07-29 14:46] LABS: INTERNATIONAL NORMALIZED RATIO 1.08 (0.93-1.1); PROTHROMBIN TIME 11.3 Seconds (9.6-11.5)
== END 2019-07-29 14:33 | disposition short-term general hospital (02) ==
LOC: EDBD → EDSEX → MERGE 13:09 → ED 14:19
DX: I63.89 Other cerebral infarction (principal); I11.0 Hypertensive heart disease with heart failure; I50.9 Heart failure, unspecified; E78.5 Hyperlipidemia, unspecified; I25.10 Atherosclerotic heart disease of native coronary artery without angina pectoris; I25.2 Old myocardial infarction; I24.9 Acute ischemic heart disease, unspecified; N28.9 Disorder of kidney and ureter, unspecified; Z72.9 Problem related to lifestyle, unspecified
CPT/HCPCS: 36415; 37195; 70450; 70496; 70498; 80047; 85025; 85610; 85730; 93005; 99291

== ENCOUNTER 2019-08-01 07:22 | Emergency (ER) | payer MEDICAID ==
[~2019-08-01] VITALS: Ht 165.1 cm; Wt 73.0 kg
[2019-08-01 08:58] LABS: PROTHROMBIN TIME 10.5 Seconds (9.6-11.5)
[2019-08-01 08:59] LABS: ALBUMIN 3.2 g/dL (3.4-5.0); ANION GAP 7 mmol/L (5-15); CALCIUM 8.8 mg/dL (8.5-10.1); CHLORIDE 107 mmol/L (98-107)
[2019-08-01 09:02] LABS: ALANINE AMINOTRANSFERASE 26 U/L (12-78); ALKALINE PHOSPHATASE 83 U/L (45-117); BILIRUBIN,TOTAL 0.4 mg/dL (0.2-1.0); CREATININE 1.21 mg/dL (0.7-1.3); TOTAL PROTEIN 7.5 g/dL (6.4-8.2)
[2019-08-01 09:15] LABS: BASOPHILS # (AUTO) 0.03 x10^3/uL (0-0.1); BASOPHILS % (AUTO) 0 % (0-1); EOSINOPHILS # (AUTO) 0.48 x10^3/uL (0-0.4); EOSINOPHILS % (AUTO) 4 % (1-7); LYMPHOCYTES # (AUTO) 0.91 x10^3/uL (1-3.4); LYMPHOCYTES % (AUTO) 8 % (22-44); MD SCAN; MEAN CORPUSCULAR HEMOGLOBIN 24.8 pg (27.5-34.5); MEAN CORPUSCULAR HGB CONC 31.1 g/dL (33.2-36.2); MEAN CORPUSCULAR VOLUME 79.7 fL (81-97); MEAN PLATELET VOLUME 6.9 fL (7.4-10.4); MONOCYTES # (AUTO) 0.65 x10^3/uL (0.2-0.8); MONOCYTES % (AUTO) 6 % (2-9); NEUTROPHILS # (AUTO) 8.87 x10^3/uL (1.8-6.8); NEUTROPHILS % (AUTO) 81 % (42-75); PLATELET COUNT 483 x10^3/uL (130-400); RED BLOOD COUNT 4.75 x10^6/uL (4.38-5.82); RED CELL DISTRIBUTION WIDTH 17.8 % (9.4-14.8)
[2019-08-01 09:50] VITALS: BP 146/92
--- NOTE | 2019-08-01 09:55 | NUR ---
supervisor fish processing: pt ambulatory to ED room 35 from adriana in [facility] at this time
--- NOTE | 2019-08-01 10:06 | NUR ---
WITH CHART REVIEW PATIENT HAD LEGITIMATE STROKE 07/29/19 WITH THROMBECTOMY. DISCHARGED HOME YESTERDAY FROM [facility] WITH INSTRUCTION TO START XARELTO TONIGHT 08/01 IN THE PM (ONCE A DAY DOSING) PRESENT WITH RIGHT LEG WEAKNESS AND RIGHT FACIAL NUMBNESS (IN CONTRAST TO LEFT SIDED SYMPTOMS ON 07/29/19) RIGHT FACIAL DROOP 1/2, SENSORY LOSS 1/2; RIGHT LEG WEAKNESS 0/2, SENSORY LOSS 1/2 SOCIAL WORK ASSOCIATE FOUND PROVIDER FOR PROMPT EXAM. DR. DAVENPORT TO ORDER STAT MRI AND BASIC LABS
--- NOTE | 2019-08-01 10:12 | NUR ---
MRI CALLED TO ALERT PUNCH PRESS OPERATOR HELPER OF NEED FOR EXPEDITED EXAM
--- NOTE | 2019-08-01 10:40 | NUR ---
BACK FROM MRI. RIGHT FACIAL DROOP REMAINS (1/2) DOES RIGHT LEG SENSATION LOSS (1/2)
--- NOTE | 2019-08-01 10:55 | NUR ---
LAB AT BEDSIDE
--- NOTE | 2019-08-01 10:59 | NUR ---
WITH CLARIFICATION. PATIENT NOTED RIGHT FACE, RUE/RLE SENSATION/MOTOR DEFICITS UPON WAKING THIS AM (5AM 08/01/19)
[2019-08-01 11:01] LABS: BASOPHILS % (AUTO) 0 % (0-1); EOSINOPHILS # (AUTO) 0.58 x10^3/uL (0-0.4); EOSINOPHILS % (AUTO) 6 % (1-7); LYMPHOCYTES # (AUTO) 1.16 x10^3/uL (1-3.4); LYMPHOCYTES % (AUTO) 12 % (22-44); MD NO; MEAN CORPUSCULAR HEMOGLOBIN 24.9 pg (27.5-34.5); MEAN CORPUSCULAR HGB CONC 30.8 g/dL (33.2-36.2); MEAN CORPUSCULAR VOLUME 80.8 fL (81-97); MEAN PLATELET VOLUME 6.6 fL (7.4-10.4); MONOCYTES # (AUTO) 0.91 x10^3/uL (0.2-0.8); MONOCYTES % (AUTO) 9 % (2-9); NEUTROPHILS # (AUTO) 7.13 x10^3/uL (1.8-6.8); NEUTROPHILS % (AUTO) 73 % (42-75); PLATELET COUNT 499 x10^3/uL (130-400); RED BLOOD COUNT 4.47 x10^6/uL (4.38-5.82)
[2019-08-01 11:12] LABS: ANION GAP 6 mmol/L (5-15); CALCIUM 8.5 mg/dL (8.5-10.1); CHLORIDE 108 mmol/L (98-107); CREATININE 1.12 mg/dL (0.7-1.3)
--- NOTE | 2019-08-01 11:20 | NUR ---
PROVIDER TO BEDSIDE-ATED THAT NEW STROKES SEEN TODAY SMALL AND RELATED TO PROCEDURE 07/29 (REPERFUSION INFARCTS). NO NEW INTERVENTION NEEDED-TO STAY ON XARELTO
== END 2019-08-01 11:44 | disposition home or self-care (01) ==
LOC: ED 11:05
DX: I63.521 Cerebral infarction due to unspecified occlusion or stenosis of right anterior cerebral artery (principal); I11.0 Hypertensive heart disease with heart failure; I50.9 Heart failure, unspecified; I25.10 Atherosclerotic heart disease of native coronary artery without angina pectoris; E11.9 Type 2 diabetes mellitus without complications; I25.2 Old myocardial infarction; E78.5 Hyperlipidemia, unspecified
CPT/HCPCS: 36415; 70551; 80048; 80053; 83735; 85025; 85610; 85730; 99284

== ENCOUNTER 2019-08-09 07:31 | Emergency (ER) | payer MEDICAID ==
[~2019-08-09] VITALS: Ht 165.1 cm; Wt 73.9 kg
[2019-08-09 07:35] VITALS: BP 128/66
--- NOTE | 2019-08-09 07:59 | NUR ---
THIS IS A 33 YO M W/ C/O CP SINCE 0430 THIS MORNING. DESCRIBES IT SHARP 4/10 PAIN IN THE UPPER LEFT PORTION OF HIS CHEST. VS STABLE. RESPIRATIONS ARE EVEN AND UNLABORED. PATIENT IS IN NO ACUTE DISTRESS. [place]RAELON SWATI CONVERSING WITH STAFF AND WATCHING TV. CALL LIGHT IN REAC. DENIES FURTHER NEEDS AT THIS TIME.
[2019-08-09 08:29] LABS: BASOPHILS # (AUTO) 0.06 x10^3/uL (0-0.1); BASOPHILS % (AUTO) 1 % (0-1); EOSINOPHILS # (AUTO) 0.49 x10^3/uL (0-0.4); EOSINOPHILS % (AUTO) 7 % (1-7); LYMPHOCYTES # (AUTO) 1.58 x10^3/uL (1-3.4); LYMPHOCYTES % (AUTO) 24 % (22-44); MD NO; MEAN CORPUSCULAR HEMOGLOBIN 24.4 pg (27.5-34.5); MEAN CORPUSCULAR HGB CONC 31.3 g/dL (33.2-36.2); MEAN PLATELET VOLUME 6.9 fL (7.4-10.4); MONOCYTES # (AUTO) 0.43 x10^3/uL (0.2-0.8); MONOCYTES % (AUTO) 6 % (2-9); NEUTROPHILS # (AUTO) 4.11 x10^3/uL (1.8-6.8); NEUTROPHILS % (AUTO) 62 % (42-75); PLATELET COUNT 474 x10^3/uL (130-400); RED BLOOD COUNT 4.32 x10^6/uL (4.38-5.82); RED CELL DISTRIBUTION WIDTH 18.4 % (9.4-14.8)
[2019-08-09 08:38] LABS: ALANINE AMINOTRANSFERASE 31 U/L (12-78); ALBUMIN 3.1 g/dL (3.4-5.0); ANION GAP 7 mmol/L (5-15); CALCIUM 8.4 mg/dL (8.5-10.1); CHLORIDE 109 mmol/L (98-107); CREATININE 1.08 mg/dL (0.7-1.3)
[2019-08-09 08:43] LABS: ALKALINE PHOSPHATASE 74 U/L (45-117); BILIRUBIN,TOTAL 0.2 mg/dL (0.2-1.0); TROPONIN I < 0.015 ng/mL (0.000-0.045)
--- NOTE | 2019-08-09 09:20 | NUR ---
Patient given discharge instructions and they have confirmed that they understand the instructions. Patient ambulatory with steady gait.
== END 2019-08-09 09:21 | disposition home or self-care (01) ==
LOC: ED 07:43
DX: R07.89 Other chest pain (principal); D53.9 Nutritional anemia, unspecified; I11.0 Hypertensive heart disease with heart failure; I50.9 Heart failure, unspecified; I25.2 Old myocardial infarction; E78.5 Hyperlipidemia, unspecified; G43.909 Migraine, unspecified, not intractable, without status migrainosus; E11.9 Type 2 diabetes mellitus without complications
CPT/HCPCS: 36415; 71046; 80053; 84484; 85025; 93005; 99284

== ENCOUNTER 2019-08-11 12:39 | Emergency (ER) | payer MEDICAID ==
[~2019-08-11] VITALS: Ht 165.1 cm; Wt 74.7 kg
--- NOTE | 2019-08-11 13:57 | NUR ---
COMMODITIES TRADER: PT AMBULATORY WITH STEADY GAIT TO ROOM AT THIS TIME. NADN. PT GIVEN GOWN AND ASKED TO CHANGE.
[2019-08-11] MEDS ORDERED: PROMETHAZINE 25 MG/ML, 1ML ONE (14:16)
[2019-08-11] MEDS ORDERED: PROMETHAZINE 25 MG/ML, 1ML IM ONE (14:30)
[2019-08-11 14:46] LABS: BASOPHILS # (AUTO) 0.02 x10^3/uL (0-0.1); BASOPHILS % (AUTO) 0 % (0-1); EOSINOPHILS # (AUTO) 0.45 x10^3/uL (0-0.4); EOSINOPHILS % (AUTO) 5 % (1-7); LYMPHOCYTES % (AUTO) 19 % (22-44); MD NO; MEAN CORPUSCULAR HEMOGLOBIN 24.1 pg (27.5-34.5); MEAN CORPUSCULAR HGB CONC 30.9 g/dL (33.2-36.2); MEAN CORPUSCULAR VOLUME 77.9 fL (81-97); MEAN PLATELET VOLUME 6.9 fL (7.4-10.4); MONOCYTES # (AUTO) 0.63 x10^3/uL (0.2-0.8); MONOCYTES % (AUTO) 7 % (2-9); NEUTROPHILS # (AUTO) 6.33 x10^3/uL (1.8-6.8); NEUTROPHILS % (AUTO) 69 % (42-75); PLATELET COUNT 481 x10^3/uL (130-400); RED BLOOD COUNT 4.41 x10^6/uL (4.38-5.82); RED CELL DISTRIBUTION WIDTH 18.5 % (9.4-14.8)
[2019-08-11 14:53] LABS: ALBUMIN 3.1 g/dL (3.4-5.0); ANION GAP 7 mmol/L (5-15); CALCIUM 8.2 mg/dL (8.5-10.1); CHLORIDE 111 mmol/L (98-107)
[2019-08-11 14:57] LABS: ALANINE AMINOTRANSFERASE 28 U/L (12-78); ALKALINE PHOSPHATASE 72 U/L (45-117); BILIRUBIN,TOTAL 0.2 mg/dL (0.2-1.0); TOTAL PROTEIN 7.1 g/dL (6.4-8.2)
[2019-08-11 15:06] VITALS: BP 115/73
== END 2019-08-11 15:20 | disposition home or self-care (01) ==
LOC: ED 15:05
DX: G43.C0 Periodic headache syndromes in child or adult, not intractable (principal); R10.13 Epigastric pain; I11.0 Hypertensive heart disease with heart failure; I50.9 Heart failure, unspecified; E78.5 Hyperlipidemia, unspecified; G43.909 Migraine, unspecified, not intractable, without status migrainosus; I25.2 Old myocardial infarction; I25.10 Atherosclerotic heart disease of native coronary artery without angina pectoris; F17.200 Nicotine dependence, unspecified, uncomplicated; Z86.73 Personal history of transient ischemic attack (TIA), and cerebral infarction without residual deficits; Z72.9 Problem related to lifestyle, unspecified
CPT/HCPCS: 36415; 76700; 80053; 83690; 85025; 96372; 99284; J2550

== ENCOUNTER 2019-08-16 22:59 | Emergency (ER) | payer MEDICAID ==
[~2019-08-16] VITALS: Ht 165.1 cm; Wt 74.6 kg
--- NOTE | 2019-08-17 00:45 | NUR ---
PT TO ROOM FROM LOBBY
--- NOTE | 2019-08-17 01:03 | NUR ---
BREAK RN: PT RESTING ON GURNEY, PROVIDED PT WITH WARM BLANKET, ERP AT BEDSIDE FOR EVAL, AWAITING ORDERS
[2019-08-17] MEDS ORDERED: ACETAMINOPHEN 500 MG TABLET ONE (01:14)
--- NOTE | 2019-08-17 01:17 | NUR ---
PT MEDICATED PER MAR
--- NOTE | 2019-08-17 01:18 | NUR ---
MONITORS APPLIED, SIDERAILS UP X2, CALL LIGHT WITHIN REACH. AWAITING CT
[2019-08-17] MEDS ORDERED: ACETAMINOPHEN 500 MG TABLET PO ONE (01:30)
[2019-08-17 02:21] VITALS: BP 139/85
== END 2019-08-17 03:05 | disposition home or self-care (01) ==
LOC: ED 08-17 01:27
DX: R51 Headache (principal); I11.0 Hypertensive heart disease with heart failure; I50.9 Heart failure, unspecified; I25.10 Atherosclerotic heart disease of native coronary artery without angina pectoris; E11.9 Type 2 diabetes mellitus without complications; I25.2 Old myocardial infarction; E78.5 Hyperlipidemia, unspecified
CPT/HCPCS: 70450; 99284

== ENCOUNTER 2019-09-17 01:07 | Emergency (ER) | payer MEDICAID ==
[~2019-09-17] VITALS: Ht 165.1 cm; Wt 71.8 kg
--- NOTE | 2019-09-17 01:37 | NUR ---
PT REPORTS CP X2 DAYS, WITH SOB, DENIES RADIATION. PT REPORTS HX OF TIA, CHF. PT DENIES OTHER C/O AT THIS TIME. PT CONNECTED TO ALL MONITORING, CALL LIGHT WITHIN REACH, ALL SAFETY MEASURES IN PLACE.
[2019-09-17 02:33] VITALS: BP 183/85
[2019-09-17 02:55] LABS: MEAN CORPUSCULAR HEMOGLOBIN 22.6 pg (27.5-34.5); MEAN CORPUSCULAR HGB CONC 30.6 g/dL (33.2-36.2); MEAN CORPUSCULAR VOLUME 73.8 fL (81-97); MEAN PLATELET VOLUME 7.6 fL (7.4-10.4); PLATELET COUNT 502 x10^3/uL (130-400); RED BLOOD COUNT 5.04 x10^6/uL (4.38-5.82); RED CELL DISTRIBUTION WIDTH 19.3 % (9.4-14.8)
[2019-09-17 03:03] LABS: ALBUMIN 2.9 g/dL (3.4-5.0); ANION GAP 4 mmol/L (5-15); CALCIUM 8.3 mg/dL (8.5-10.1); CHLORIDE 112 mmol/L (98-107)
[2019-09-17 03:09] LABS: CREATININE 1.05 mg/dL (0.7-1.3); TROPONIN I < 0.015 ng/mL (0.000-0.045)
[2019-09-17 03:10] LABS: BASOPHILS # (AUTO) 0.03 x10^3/uL (0-0.1); BASOPHILS % (AUTO) 0 % (0-1); EOSINOPHILS # (AUTO) 0.41 x10^3/uL (0-0.4); EOSINOPHILS % (AUTO) 5 % (1-7); LYMPHOCYTES # (AUTO) 1.64 x10^3/uL (1-3.4); LYMPHOCYTES % (AUTO) 19 % (22-44); MD SCAN; MONOCYTES # (AUTO) 0.72 x10^3/uL (0.2-0.8); MONOCYTES % (AUTO) 9 % (2-9); NEUTROPHILS # (AUTO) 5.66 x10^3/uL (1.8-6.8); NEUTROPHILS % (AUTO) 67 % (42-75)
== END 2019-09-17 04:15 | disposition home or self-care (01) ==
LOC: ED 04:03
DX: R07.89 Other chest pain (principal); R51 Headache; I25.2 Old myocardial infarction; I11.0 Hypertensive heart disease with heart failure; I50.9 Heart failure, unspecified; E11.9 Type 2 diabetes mellitus without complications; E78.5 Hyperlipidemia, unspecified; I25.10 Atherosclerotic heart disease of native coronary artery without angina pectoris; F17.200 Nicotine dependence, unspecified, uncomplicated; Z86.73 Personal history of transient ischemic attack (TIA), and cerebral infarction without residual deficits
CPT/HCPCS: 36415; 71045; 80048; 82040; 84484; 85025; 93005; 99284

== ENCOUNTER 2019-10-14 21:15 | Emergency (ER) | payer MEDICAID ==
[~2019-10-14] VITALS: Ht 165.1 cm; Wt 74.4 kg
--- NOTE | 2019-10-14 21:50 | NUR ---
pT TO ROOM
[2019-10-14] MEDS ORDERED: ASPIRIN 81 MG TABLET CHEW ONE (22:00)
[2019-10-14] MEDS ORDERED: ASPIRIN 81 MG TABLET CHEW PO ONE (22:00)
--- NOTE | 2019-10-14 22:00 | NUR ---
Pt here for substernal chest pain with radiation across the chest. Pt reports onset after eating tonight. Reports hx of cardiac stent and stroke this past year. Pt denies trauma. Pt is able to ambulate without difficulty. Pt resting in room nadn. Reports pain is not as bad. Pt connected to all monitors and call light in reach.
[2019-10-14 22:27] LABS: BASOPHILS # (AUTO) 0.04 x10^3/uL (0-0.1); BASOPHILS % (AUTO) 1 % (0-1); EOSINOPHILS # (AUTO) 0.35 x10^3/uL (0-0.4); EOSINOPHILS % (AUTO) 5 % (1-7); LYMPHOCYTES # (AUTO) 1.88 x10^3/uL (1-3.4); LYMPHOCYTES % (AUTO) 28 % (22-44); MD NO; MEAN CORPUSCULAR HEMOGLOBIN 22.9 pg (27.5-34.5); MEAN CORPUSCULAR HGB CONC 31.5 g/dL (33.2-36.2); MEAN CORPUSCULAR VOLUME 72.8 fL (81-97); MEAN PLATELET VOLUME 7.9 fL (7.4-10.4); MONOCYTES % (AUTO) 12 % (2-9); NEUTROPHILS # (AUTO) 3.71 x10^3/uL (1.8-6.8); NEUTROPHILS % (AUTO) 55 % (42-75); PLATELET COUNT 356 x10^3/uL (130-400); RED BLOOD COUNT 4.96 x10^6/uL (4.38-5.82); RED CELL DISTRIBUTION WIDTH 20.5 % (9.4-14.8)
[2019-10-14 22:39] VITALS: BP 103/60
[2019-10-14 22:41] LABS: ALBUMIN 2.8 g/dL (3.4-5.0); ANION GAP 3 mmol/L (5-15); CALCIUM 8.2 mg/dL (8.5-10.1); CHLORIDE 107 mmol/L (98-107)
[2019-10-14 22:47] LABS: ALANINE AMINOTRANSFERASE 81 U/L (12-78); ALKALINE PHOSPHATASE 134 U/L (45-117); BILIRUBIN,TOTAL 0.2 mg/dL (0.2-1.0); CREATININE 1.17 mg/dL (0.7-1.3); TOTAL PROTEIN 6.7 g/dL (6.4-8.2); TROPONIN I < 0.015 ng/mL (0.000-0.045)
--- NOTE | 2019-10-14 23:47 | NUR ---
Patient/Caregiver given discharge instructions and they have confirmed that they understand the instructions. Patient ambulatory with steady gait.
== END 2019-10-14 23:49 | disposition home or self-care (01) ==
LOC: ED 23:30
DX: R07.89 Other chest pain (principal); I25.2 Old myocardial infarction; E78.5 Hyperlipidemia, unspecified; F17.210 Nicotine dependence, cigarettes, uncomplicated; I50.9 Heart failure, unspecified; Z86.73 Personal history of transient ischemic attack (TIA), and cerebral infarction without residual deficits
CPT/HCPCS: 36415; 71046; 80053; 83880; 84484; 85025; 93005; 99285

== ENCOUNTER 2020-05-02 16:52 | Emergency (ER) | payer MEDICAID ==
[~2020-05-02] VITALS: Ht 165.1 cm; Wt 79.7 kg
[~2020-05-02 16:52] MED LIST changes: -NITR9CAP SL; +NITR9CAP10 SL
--- NOTE | 2020-05-02 17:13 | NUR ---
PT CAME IN CO OF "IT HURTS WHEN I TAKE A DEEP BREATH IN MY CHEST". PT STATES HE HAS CHF AND TOOK 2 LASIX TODAY WITH NO RELIEF OF PAIN. PT IS RESTING IN [facility]. EKG COMPLETE, CONNECTED TO MONITORING EQUIPMENT.
[2020-05-02 18:11] LABS: ALANINE AMINOTRANSFERASE 32 U/L (12-78); ALBUMIN 3.6 g/dL (3.4-5.0); ANION GAP 6 mmol/L (5-15); CALCIUM 8.9 mg/dL (8.5-10.1); CHLORIDE 106 mmol/L (98-107)
[2020-05-02 18:16] LABS: ALKALINE PHOSPHATASE 85 U/L (45-117); BILIRUBIN,TOTAL 0.3 mg/dL (0.2-1.0); TOTAL PROTEIN 7.7 g/dL (6.4-8.2); TROPONIN I < 0.015 ng/mL (0.000-0.045)
[2020-05-02] MEDS ORDERED: ACETAMINOPHEN 325 MG TABLET ONE (18:36)
[2020-05-02 18:38] LABS: BASOPHILS # (AUTO) 0.07 x10^3/uL (0-0.1); BASOPHILS % (AUTO) 1 % (0-1); EOSINOPHILS % (AUTO) 7 % (1-7); LYMPHOCYTES # (AUTO) 1.99 x10^3/uL (1-3.4); LYMPHOCYTES % (AUTO) 24 % (22-44); MD NO; MEAN CORPUSCULAR HEMOGLOBIN 28.2 pg (27.5-34.5); MEAN CORPUSCULAR HGB CONC 32.6 g/dL (33.2-36.2); MEAN CORPUSCULAR VOLUME 86.4 fL (81-97); MEAN PLATELET VOLUME 6.9 fL (7.4-10.4); MONOCYTES # (AUTO) 0.82 x10^3/uL (0.2-0.8); MONOCYTES % (AUTO) 10 % (2-9); NEUTROPHILS # (AUTO) 4.86 x10^3/uL (1.8-6.8); NEUTROPHILS % (AUTO) 58 % (42-75); PLATELET COUNT 336 x10^3/uL (130-400); RED BLOOD COUNT 5.36 x10^6/uL (4.38-5.82); RED CELL DISTRIBUTION WIDTH 13.6 % (9.4-14.8)
[2020-05-02 18:39] VITALS: BP 125/74
--- NOTE | 2020-05-02 18:39 | NUR ---
PT CO OF HA. RICKS NOTIFIED. SEE MAR FOR INVERTIONS
[2020-05-02] MEDS ORDERED: ACETAMINOPHEN 325 MG TABLET PO ONE (19:00)
== END 2020-05-02 19:39 | disposition home or self-care (01) ==
LOC: ED 19:15
DX: R07.89 Other chest pain (principal); R06.02 Shortness of breath; R94.31 Abnormal electrocardiogram [ECG] [EKG]; I11.0 Hypertensive heart disease with heart failure; I50.9 Heart failure, unspecified; E11.9 Type 2 diabetes mellitus without complications; I25.2 Old myocardial infarction; E78.5 Hyperlipidemia, unspecified; I25.10 Atherosclerotic heart disease of native coronary artery without angina pectoris; F17.200 Nicotine dependence, unspecified, uncomplicated; Z86.73 Personal history of transient ischemic attack (TIA), and cerebral infarction without residual deficits
CPT/HCPCS: 36415; 71045; 80053; 84484; 85025; 93005; 99285

== ENCOUNTER 2020-12-08 10:47 | Emergency (ER) | payer MEDICAID ==
[~2020-12-08] VITALS: Ht 162.6 cm; Wt 73.2 kg
[~2020-12-08 10:47] MED LIST changes: -CLIN300C8 PO; +CLIN300C9 PO
--- NOTE | 2020-12-08 11:11 | NUR ---
EKG IN TRIAGE
[2020-12-08 11:31] LABS: BASOPHILS % (AUTO) 1 % (0-1); EOSINOPHILS % (AUTO) 4 % (1-7); LYMPHOCYTES % (AUTO) 12 % (22-44); MEAN CORPUSCULAR HEMOGLOBIN 28.8 pg (27.5-34.5); MEAN CORPUSCULAR HGB CONC 33.2 g/dL (33.2-36.2); MONOCYTES % (AUTO) 7 % (2-9); NEUTROPHILS % (AUTO) 77 % (42-75); PLATELET COUNT 345 x10^3/uL (130-400); RED BLOOD COUNT 5.42 x10^6/uL (4.38-5.82); RED CELL DISTRIBUTION WIDTH 14.5 % (9.4-14.8)
[2020-12-08 11:41] LABS: MD NO
[2020-12-08 11:43] LABS: ALBUMIN 3.4 g/dL (3.4-5.0); CALCIUM 8.8 mg/dL (8.5-10.1); CREATININE 1.12 mg/dL (0.7-1.3)
[2020-12-08 11:46] LABS: TROPONIN I < 0.015 ng/mL (0.000-0.045)
[2020-12-08] MEDS ORDERED: KETOROLAC 30 MG/1 ML ONE (11:46)
[2020-12-08] MEDS ORDERED: ASPIRIN 81 MG TABLET CHEW ONE (11:46)
[2020-12-08 11:51] LABS: ANION GAP 8 mmol/L (5-15); CHLORIDE 105 mmol/L (98-107)
--- NOTE | 2020-12-08 11:58 | NUR ---
PT C/O CHEST PRESSURE THAT STARTED 3 DAYS AGO. PAIN DOES NOT RADIATE AND RATED 5/10. PT DENIES SOB OR N/V. PT ALSO HAS A HEADACHE THAT STARTED THIS AM.
[2020-12-08] MEDS ORDERED: ASPIRIN 81 MG TABLET CHEW PO ONE (12:00)
[2020-12-08] MEDS ORDERED: KETOROLAC 30 MG/1 ML IVPush ONE (12:00)
[2020-12-08] MEDS ORDERED: OMNIPAQUE 350 MG/ML, 75ML BOTTLE ONE (12:13)
[2020-12-08] MEDS ORDERED: CEFTRIAXONE 1,000 MG in DEXTROSE 5% 50 ML IVPB ONE (13:00)
[2020-12-08] MEDS ORDERED: AZITHROMYCIN 500 MG in SODIUM CHLORIDE 0.9% 250 ML IV ONE (13:00)
[2020-12-08 15:29] VITALS: BP 110/78
--- NOTE | 2020-12-08 15:47 | NUR ---
TASK RN COMPLETED DISCHARGE INSTRUCTIONS AND EDUCATION. PT AMBULATED TO DC AREA, STEADY GAIT.
== END 2020-12-08 15:49 | disposition home or self-care (01) ==
LOC: ED 13:55
DX: J06.9 Acute upper respiratory infection, unspecified (principal); Z20.822 Contact with and (suspected) exposure to COVID-19; J12.9 Viral pneumonia, unspecified; R51.9 Headache, unspecified; I25.2 Old myocardial infarction; E87.5 Hyperkalemia; R07.89 Other chest pain; R06.02 Shortness of breath; F17.210 Nicotine dependence, cigarettes, uncomplicated
CPT/HCPCS: 36415; 71045; 71275; 80048; 82040; 83880; 84484; 85025; 93005; 96365; 96366; 96368; 96375; 99285; J0456; J0696; J1885; J7050; Q9967; U0003

== ENCOUNTER 2021-04-23 01:45 | Emergency (ER) | payer MEDICAID ==
[~2021-04-23] VITALS: Ht 162.6 cm; Wt 70.4 kg
[~2021-04-23 01:45] MED LIST changes: +POTA-143 PO; -POTA20TA6 PO
[2021-04-23 03:03] LABS: BASOPHILS % (AUTO) 1 % (0-1); EOSINOPHILS % (AUTO) 5 % (1-7); LYMPHOCYTES % (AUTO) 21 % (22-44); MEAN CORPUSCULAR HEMOGLOBIN 28.5 pg (27.5-34.5); MEAN CORPUSCULAR HGB CONC 33.8 g/dL (33.2-36.2); MONOCYTES % (AUTO) 7 % (2-9); NEUTROPHILS % (AUTO) 66 % (42-75); PLATELET COUNT 292 x10^3/uL (130-400); RED BLOOD COUNT 4.56 x10^6/uL (4.38-5.82); RED CELL DISTRIBUTION WIDTH 13.5 % (9.4-14.8)
[2021-04-23 03:16] LABS: ALANINE AMINOTRANSFERASE 36 U/L (12-78); ALBUMIN 2.7 g/dL (3.4-5.0); ANION GAP 5 mmol/L (5-15); CALCIUM 8.6 mg/dL (8.5-10.1); CHLORIDE 110 mmol/L (98-107); CREATININE 0.92 mg/dL (0.7-1.3)
[2021-04-23 03:21] LABS: ALKALINE PHOSPHATASE 72 U/L (45-117); BILIRUBIN,TOTAL 0.3 mg/dL (0.2-1.0); TOTAL PROTEIN 6.5 g/dL (6.4-8.2); TROPONIN I < 0.015 ng/mL (0.000-0.045)
[2021-04-23 03:53] VITALS: BP 144/100
== END 2021-04-23 04:24 | disposition home or self-care (01) ==
LOC: ED 02:00
DX: I50.9 Heart failure, unspecified (principal); R07.89 Other chest pain; Z72.9 Problem related to lifestyle, unspecified; F17.210 Nicotine dependence, cigarettes, uncomplicated; Z20.822 Contact with and (suspected) exposure to COVID-19
CPT/HCPCS: 36415; 71045; 80053; 83880; 84484; 85025; 93005; 99285; 99406; U0003; U0005